=== PATIENT | male | born 1955 | race Caucasian/White ===

== ENCOUNTER → 2016-04-06 | Outpatient (CLI) | payer BC, OTHER ==
[~2016-04-06] MED LIST: APIX1TAB3 PO; ASPEC325 PO; CEPH500C2 PO; CHOL100010 PO; CHOL100027 PO; CZR50 PO; FERR1TAB23 PO; LOSA100T65 PO; MULT-513 PO; OXYC-409 PO; OXYC-57 PO; PRT/20 PO
== END | disposition home or self-care (01) ==
LOC: C.RDSM 15:37
PROVIDERS: ATTEND Physical Medicine & Rehabilitation Sports Medicine
DX: M21.611 Bunion of right foot (principal)

== ENCOUNTER 2016-07-30 15:10 | Inpatient (IN) | payer BC ==
[~2016-07-30] VITALS: Ht 193 cm; Wt 121.9 kg
[~2016-07-30 15:10] MED LIST changes: -APIX1TAB3 PO; -CEPH500C2 PO; -CHOL100010 PO; -CHOL100027 PO; -FERR1TAB23 PO; -LOSA100T65 PO; -MULT-513 PO; -OXYC-57 PO
[2016-07-30] MEDS ORDERED: ONDANSETRON INJ 2 MG/ML 2 ML VIAL IV STA (15:24)
[2016-07-30] MEDS ORDERED: MoRPHine SULFATE 10 MG/ML CARP/VIAL IV STA (15:24)
[2016-07-30] MEDS ORDERED: SODIUM CHLORIDE 0.9% 1000ML 1,000 ML IV ONE (15:30)
[2016-07-30] MEDS ORDERED: MoRPHine SULFATE 4 MG/ML 1 ML CARP\\VIAL ONE (15:32)
[2016-07-30 15:45] LABS: BASO % 0.8 %; BASO ABS # 0.05 K/uL (0-0.2); COMPLETE YES; EOS % 1.7 %; IG% 0.2 %; LYMPH % 26.1 %; LYMPH ABS # 1.66 K/uL (1.2-3.4); MEAN CELL VOLUME 97.7 fL (80-100); MEAN CORPUSCULAR HEMOGLOBIN 32.4 pg (25-34); MEAN CORPUSCULAR HGB CONC 33.2 g/dl (32-36); MEAN PLATELET VOLUME 10.8 fL (7.4-10.4); MONO % 7.1 %; NEUT % 64.1 %; PLATELET COUNT 177 K/uL (130-400); RED BLOOD COUNT 4.81 M/uL (4.7-6.1); WHITE BLOOD COUNT 6.37 K/uL (4.8-10.8)
[2016-07-30] MEDS ORDERED: MULT-513 PO ×2 (15:50→16:10)
[2016-07-30 16:06] LABS: BUN/CREATININE RATIO 20.7 (10-20); CALCIUM 9.1 mg/dl (8.5-10.1); CREATININE 0.89 mg/dl (0.60-1.40)
[2016-07-30 16:10] LABS: ALB/GLOB RATIO 1.3 (0.9-2)
[2016-07-30] MEDS ORDERED: APIX1TAB3 PO (16:10)
[2016-07-30] MEDS ORDERED: LOSA100T65 PO (16:10)
[2016-07-30] MEDS ORDERED: FERR1TAB23 PO (16:10)
[2016-07-30] MEDS ORDERED: CHOL100027 PO (16:11)
--- NOTE | 2016-07-30 16:14 | DIAGNOSTIC IMAGING REPORT ---
ABDOMINAL ULTRASOUND, RIGHT LOWER QUADRANT HISTORY: Pain Right inguinal mass and pain. COMPARISON: CT 07/26/2014 FINDINGS: 10 x 6 x 5 cm complex mass right inguinal region. This contains a combination of fluid-filled loops of bowel, as well as potential fat. This potentially represents a complex bowel containing hernia. IMPRESSION: Complex bowel containing hernia versus fat and bowel-containing hernia. Possibility of a neoplastic mass is not entirely excluded Electronically signed by: Higinio Powers M.D. 07/30/2016 4:12 PM Dictated Date/Time: 07/30/2016 4:10 PM
[2016-07-30] MEDS ORDERED: HYDROmorphone INJ 1 MG/ML SYR IV STA (16:35)
--- NOTE | 2016-07-30 17:02 | DIAGNOSTIC IMAGING REPORT ---
ABDOMEN AND PELVIS CT WITHOUT CONTRAST CT DOSE: 1350.97 mGy.cm HISTORY: Flank pain Right inguinal pain. ?Incarcerated hernia vs other. See US TECHNIQUE: Multiaxial CT images of the abdomen and pelvis were performed without contrast. COMPARISON STUDY: 2013 FINDINGS: The ultrasound findings relating to the right lower quadrant relate to a fat and small bowel containing hernia. May be a component of mild incarceration based of the fluid-filled nature of the dependent loops of small bowel. There are no bowel obstructive changes. There is a gallstone within the gallbladder lumen. Findings of a prior gastric operative changes are noted. Liver spleen and pancreas are uniform. Kidneys negative for hydronephrosis. Bowel pattern overall again is nonobstructive. Bladder is midline. There is no free fluid within the pelvic cul-de-sac. There is a small fat-containing left inguinal hernia. IMPRESSION: 1. Fat-containing right inguinal hernia containing fat and small bowel.. 2. Possibly of a component of mild incarceration is considered, although there is no evidence for obstructive change or significant bowel wall edema at the current time. 3. Gallstone Electronically signed by: Higinio Powers M.D. 07/30/2016 5:01 PM Dictated Date/Time: 07/30/2016 4:57 PM
[2016-07-30] MEDS ORDERED: CEFOXITIN SOD 2 GM VIAL IV STA (17:09)
[2016-07-30] MEDS ORDERED: CEFOXITIN 2000MG/60 ML D5W IV SCH (17:15)
[2016-07-30] MEDS ORDERED: MIDAZOLAM HCL 1 MG/ML 2ML VIAL ONE (17:34)
--- NOTE | 2016-07-30 17:34 | History and Physical ---
History & Physical Date & Time of Service: July 30, 2016 at 17:29 Chief Complaint: Lower Ab Pain, Groin Pain Primary Care Physician: Matthew Pro M.D. History of Present Illness Source: patient, family pt to ER with severe Rt groin pain starting 31/2 hrs ago- h/o of ing hernia CT shows Large Rt ing hernia with small bowel/ fluid pt takes eliquis for afib Past Medical/Surgical History Medical Problems: (1) Afib Status: Chronic (2) GI bleed Status: Resolved (3) Rotator cuff disorder Status: Resolved Family History Diabetes mellitus Hypertension Social History Smoking Status: Never Smoker Drug Use: none Marital Status: Occupational Status: employed Multi-Drug Resistant Organisms History of MDRO: No Allergies Coded Allergies: No Known Allergies (Unverified , 05/28/14) Home Medications Scheduled Apixaban (Eliquis), 5 MG PO BID Cholecalciferol (Vitamin D 1000 Unit), 1,000 INTER.UNIT PO DAILY Ferrous Sulfate (Iron), 1 TAB PO DAILY Losartan Potassium (Cozaar), 100 MG PO DAILY Multivitamins/Minerals (Mvi With Minerals), 1 TAB PO DAILY Multivitamins/Minerals (Mvi With Minerals), 1 TAB PO DAILY Review of Systems Constitutional: No chills, No fever Abdomen: + pain Physical Exam Vital Signs Date Time Temp Pulse Resp B/P Pulse Ox O2 Delivery O2 Flow Rate FiO2 07/30/16 15:22 36.8 62 20 148/98 96 Room Air General Appearance: + mild distress Eyes: normal inspection Respiratory/Chest: normal breath sounds, no respiratory distress Cardiovascular: + irregularly irregular Abdomen/GI: soft, + tenderness (Rt inguinal area- severe tenderness) Skin: warm/dry Diagnostics Laboratory Results Results Past 24 Hours Test 07/30/16 15:24 07/30/16 15:34 Range/Units White Blood Count 6.37 4.8-10.8 K/uL Red Blood Count 4.81 4.7-6.1 M/uL Hemoglobin 15.6 14.0-18.0 g/dL Hematocrit 47.0 42-52 % Mean Corpuscular Volume 97.7 80-100 fL Mean Corpuscular Hemoglobin 32.4 25-34 pg Mean Corpuscular Hemoglobin Concent 33.2 32-36 g/dl Platelet Count 177 130-400 K/uL Mean Platelet Volume 10.8 7.4-10.4 fL Neutrophils (%) (Auto) 64.1 % Lymphocytes (%) (Auto) 26.1 % Monocytes (%) (Auto) 7.1 % Eosinophils (%) (Auto) 1.7 % Basophils (%) (Auto) 0.8 % Neutrophils # (Auto) 4.09 1.4-6.5 K/uL Lymphocytes # (Auto) 1.66 1.2-3.4 K/uL Monocytes # (Auto) 0.45 0.11-0.59 K/uL Eosinophils # (Auto) 0.11 0-0.5 K/uL Basophils # (Auto) 0.05 0-0.2 K/uL RDW Standard Deviation 46.2 36.4-46.3 fL RDW Coefficient of Variation 12.9 11.5-14.5 % Immature Granulocyte % (Auto) 0.2 % Immature Granulocyte # (Auto) 0.01 0.00-0.02 K/uL Sodium Level 142 136-145 mmol/L Potassium Level 4.0 3.5-5.1 mmol/L Chloride Level 108 98-107 mmol/L Carbon Dioxide Level 25 21-32 mmol/L Anion Gap 9.0 3-11 mmol/L Blood Urea Nitrogen 18 7-18 mg/dl Creatinine 0.89 0.60-1.40 mg/dl Est Creatinine Clear Calc Drug Dose 123.4 ml/min Estimated GFR () 107.0 Estimated GFR (Non- 92.3 BUN/Creatinine Ratio 20.7 10-20 Random Glucose 116 70-99 mg/dl Calcium Level 9.1 8.5-10.1 mg/dl Total Bilirubin 0.5 0.2-1 mg/dl Aspartate Amino Transf (AST/SGOT) 29 15-37 U/L Alanine Aminotransferase (ALT/SGPT) 43 12-78 U/L Alkaline Phosphatase 43 45-117 U/L Total Protein 6.6 6.4-8.2 gm/dl Albumin 3.7 3.4-5.0 gm/dl Globulin 2.9 2.5-4.0 gm/dl Albumin/Globulin Ratio 1.3 0.9-2 Impression Assessment and Plan pt with incarcerated , possible strangulated Rt ing hernia on Eliquis- no reversal- this is an emergency with high risk of bowel infarction- family , pt understand risks of bleeding discussed with coag clinic, will T&S to OR for Rt ing hernia repair, possible bowel resection
[2016-07-30] MEDS ORDERED: FENTANYL CITRATE INJ 50 MCG/1 ML 2 ML VIAL ONE ×2 (17:35→18:20)
[2016-07-30] MEDS ORDERED: LIDOCAINE HCL 1% 20 ML VIAL ONE (17:35)
[2016-07-30] MEDS ORDERED: BUPIVACAINE 0.5 % 5 MG/1 ML MPF 30ML VIAL ONE (17:35)
[2016-07-30] MEDS ORDERED: CEFAZOLIN SOD 1 GM VIAL ONE (17:37)
[2016-07-30] MEDS ORDERED: CHOL100010 PO (18:16)
--- NOTE | 2016-07-30 18:45 | EMERGENCY ROOM VISIT NOTE ---
History First contact with patient: 15:15 Chief Complaint: GROIN PAIN Stated Complaint: LOWER AB PAIN, GROIN PAIN History of Present Illness The patient is a 61 year old male who presents to the Emergency Room with complaints of severe pain in his groin that began about 2 PM this afternoon (1 hour and 15 minutes prior to arrival). The patient does not recall distinct injury or trauma. He was not doing anything at the time of his initial onset of pain. He states the pain radiates slightly into his right lower quadrant abdomen. The patient is with a history of multiple hernias that have required repair as well as appendectomy. He has not had fever or chills. No vomiting but he is nauseated. He does Elloquis for atrial fibrillation, but is otherwise fairly healthy. The patient does not have flank pain or dysuria. No difficulty using the bathroom. His last meal was around 12 noon. He rates his discomfort a 10/10 and has not taken anything [id number] for his discomfort. Review of Systems More than 10 systems were reviewed and otherwise negative with the exception of history of present illness. Past Medical/Surgical History Medical Problems: (1) Afib (2) GI bleed (3) Rotator cuff disorder Family History Diabetes mellitus Hypertension Social History Smoking Status: Never Smoker Alcohol Use: none Drug Use: none Marital Status: Housing Status: lives with significant other Occupation Status: employed Current/Historical Medications Scheduled Apixaban (Eliquis), 5 MG PO BID Cholecalciferol (Vitamin D 1000 Unit), 1,000 INTER.UNIT PO DAILY Ferrous Sulfate (Iron), 1 TAB PO DAILY Losartan Potassium (Cozaar), 100 MG PO DAILY Multivitamins/Minerals (Mvi With Minerals), 1 TAB PO DAILY Multivitamins/Minerals (Mvi With Minerals), 1 TAB PO DAILY Allergies Coded Allergies: No Known Allergies (Unverified , 05/28/14) Physical Exam Vital Signs Date Time Temp Pulse Resp B/P Pulse Ox O2 Delivery O2 Flow Rate FiO2 07/30/16 17:20 76 20 156/102 96 Room Air 07/30/16 15:22 36.8 62 20 148/98 96 Room Air Physical Exam VITALS: Vitals are noted on the nurse's note and reviewed by myself. Vital signs stable. GENERAL: Well-developed, well-nourished, white male who is moderately uncomfortable on examination. HEAD: Normocephalic atraumatic. HEART: Regular rate and rhythm without murmurs gallops or rubs. LUNGS: Clear to auscultation bilaterally without wheezes, rales or rhonchi. No retractions or accessory muscle use. ABDOMEN: Positive normal bowel sounds x 4. Soft, nontender, without masses or organomegaly. There is a palpable mass in the right inguinal canal region that is exquisitely tender on palpation. The patient does guard in this area. There is no obvious erythema. MUSCULOSKELETAL: No muscle atrophy, erythema, or edema noted. Full range of motion without joint tenderness in all extremities. Medical Decision & Procedures ER Provider Diagnostic Interpretation: ABDOMEN AND PELVIS CT WITHOUT CONTRAST CT DOSE: 1350.97 mGy.cm HISTORY: Flank pain Right inguinal pain. ?Incarcerated hernia vs other. See US TECHNIQUE: Multiaxial CT images of the abdomen and pelvis were performed without contrast. COMPARISON STUDY: 2013 FINDINGS: The ultrasound findings relating to the right lower quadrant relate to a fat and small bowel containing hernia. May be a component of mild incarceration based of the fluid-filled nature of the dependent loops of small bowel. There are no bowel obstructive changes. There is a gallstone within the gallbladder lumen. Findings of a prior gastric operative changes are noted. Liver spleen and pancreas are uniform. Kidneys negative for hydronephrosis. Bowel pattern overall again is nonobstructive. Bladder is midline. There is no free fluid within the pelvic cul-de-sac. There is a small fat-containing left inguinal hernia. IMPRESSION: 1. Fat-containing right inguinal hernia containing fat and small bowel.. 2. Possibly of a component of mild incarceration is considered, although there is no evidence for obstructive change or significant bowel wall edema at the current time. 3. Gallstone ABDOMINAL ULTRASOUND, RIGHT LOWER QUADRANT HISTORY: Pain Right inguinal mass and pain. COMPARISON: CT 07/26/2014 FINDINGS: 10 x 6 x 5 cm complex mass right inguinal region. This contains a combination of fluid-filled loops of bowel, as well as potential fat. This potentially represents a complex bowel containing hernia. IMPRESSION: Complex bowel containing hernia versus fat and bowel-containing hernia. Possibility of a neoplastic mass is not entirely excluded Laboratory Results 07/30/16 15:34 Red Blood Count 4.81, Mean Corpuscular Volume 97.7, Mean Corpuscular Hemoglobin 32.4, Mean Corpuscular Hemoglobin Concent 33.2, Mean Platelet Volume 10.8, Neutrophils (%) (Auto) 64.1, Lymphocytes (%) (Auto) 26.1, Monocytes (%) (Auto) 7.1, Eosinophils (%) (Auto) 1.7, Basophils (%) (Auto) 0.8, Neutrophils # (Auto) 4.09, Lymphocytes # (Auto) 1.66, Monocytes # (Auto) 0.45, Eosinophils # (Auto) 0.11, Basophils # (Auto) 0.05 07/30/16 15:34 Test 07/30/16 15:24 07/30/16 15:34 White Blood Count 6.37 K/uL (4.8-10.8) Red Blood Count 4.81 M/uL (4.7-6.1) Hemoglobin 15.6 g/dL (14.0-18.0) Hematocrit 47.0 % (42-52) Mean Corpuscular Volume 97.7 fL (80-100) Mean Corpuscular Hemoglobin 32.4 pg (25-34) Mean Corpuscular Hemoglobin Concent 33.2 g/dl (32-36) Platelet Count 177 K/uL (130-400) Mean Platelet Volume 10.8 fL (7.4-10.4) Neutrophils (%) (Auto) 64.1 % Lymphocytes (%) (Auto) 26.1 % Monocytes (%) (Auto) 7.1 % Eosinophils (%) (Auto) 1.7 % Basophils (%) (Auto) 0.8 % Neutrophils # (Auto) 4.09 K/uL (1.4-6.5) Lymphocytes # (Auto) 1.66 K/uL (1.2-3.4) Monocytes # (Auto) 0.45 K/uL (0.11-0.59) Eosinophils # (Auto) 0.11 K/uL (0-0.5) Basophils # (Auto) 0.05 K/uL (0-0.2) RDW Standard Deviation 46.2 fL (36.4-46.3) RDW Coefficient of Variation 12.9 % (11.5-14.5) Immature Granulocyte % (Auto) 0.2 % Immature Granulocyte # (Auto) 0.01 K/uL (0.00-0.02) Anion Gap 9.0 mmol/L (3-11) Est Creatinine Clear Calc Drug Dose 123.4 ml/min Estimated GFR () 107.0 Estimated GFR (Non- 92.3 BUN/Creatinine Ratio 20.7 (10-20) Calcium Level 9.1 mg/dl (8.5-10.1) Total Bilirubin 0.5 mg/dl (0.2-1) Aspartate Amino Transf (AST/SGOT) 29 U/L (15-37) Alanine Aminotransferase (ALT/SGPT) 43 U/L (12-78) Alkaline Phosphatase 43 U/L (45-117) Total Protein 6.6 gm/dl (6.4-8.2) Albumin 3.7 gm/dl (3.4-5.0) Globulin 2.9 gm/dl (2.5-4.0) Albumin/Globulin Ratio 1.3 (0.9-2) Medications Administered Medications (Trade) Dose Ordered Sig/Michael Route Start Time Stop Time Status Last Admin Dose Admin Sodium Chloride (Nss 1000ml) 1,000 ml @ 999 mls/hr Q1H1M ONCE IV 07/30/16 15:30 07/30/16 16:30 DC 07/30/16 15:36 999 MLS/HR Ondansetron HCl (Zofran Inj) 4 mg NOW STAT IV 07/30/16 15:24 07/30/16 15:25 DC 07/30/16 15:36 4 MG Morphine Sulfate (MoRPHine SULFATE INJ) 8 mg STK-MED ONCE .ROUTE 07/30/16 15:32 07/30/16 15:33 DC 07/30/16 15:36 8 MG Hydromorphone HCl (Dilaudid Inj) 1 mg NOW STAT IV 07/30/16 16:35 07/30/16 16:36 DC 07/30/16 17:27 1 MG Cefoxitin Sodium (Mefoxin 2000mg/ 60 ml D5W) 2,000 mg NOW IV 07/30/16 17:15 07/30/16 19:00 07/30/16 17:27 2,000 MG ED Course Physical exam and history were performed. Nursing notes and EMR were reviewed. Patient appears to have right groin pain for the past few hours. The patient is exquisitely tender in the right inguinal canal region with palpable mass. This area is not reducible and concerning for hernia. IV access was established and labs were obtained. The patient was hydrated and medicated as above. Ultrasound was performed. The patient blood work is as above and was reviewed. He does not have a significantly elevated white blood cell count, gross anemia, bandemia, or significant electrolyte imbalance. His ultrasound does show a bowel containing hernia, which clinically correlates with his symptoms. The patient continued to be exquisitely tender, and out of concern for incarceration a CT scan was performed. The patient CT scan does show what appears to be early incarceration of a bowel containing hernia. Case was discussed with my attending physician, Dr. Fisher, and then with the on-call surgeon Dr. Beaver. Dr. Beaver recommended starting Mefoxin 2 g, which was performed. Dr. Beaver did evaluate the patient here in the ER regarding his symptoms. Please see Dr. Beaver's dictation for further patient course, plan, and disposition. The chart was completed utilizing [employer] Speech Voice Recognition Software. Grammatical errors, random word insertions, pronoun errors, and incomplete sentences are an occasional consequence of this system due to software limitations, ambient noise, and hardware issues. Any formal questions or concerns about the content, text, or information contained within the body of this dictation should be directly addressed to the provider for clarification. . Medical Decision Differential diagnosis: Etiologies such as incarcerated hernia, appendicitis, diverticulitis, PUD, biliary pathology, UTI, pancreatitis, obstruction, mesenteric ischemia, aortic pathology, infections, inflammatory bowel disease, renal colic, as well as others were entertained. Impression Primary Impression: Incarcerated hernia Departure Information Referrals Matthew Pro M.D. (PCP) Patient Instructions [facility]
[2016-07-30] MEDS ORDERED: SUCCINYLCHOLINE CHLORIDE 20 MG/ML 10 ML VIAL IV ONE (18:58)
[2016-07-30] MEDS ORDERED: DEXAMETHASONE SOD INJ 4 MG/ML VIAL ONE (18:58)
[2016-07-30] MEDS ORDERED: LIDOCAINE HCL 2% 2 ML VIAL (20MG/ML) ONE (18:58)
[2016-07-30] MEDS ORDERED: ONDANSETRON INJ 2 MG/ML 2 ML VIAL ONE (18:58)
[2016-07-30] MEDS ORDERED: PROPOFOL IV EMULSION 10 MG/ML 20 ML VIAL IV ONE (18:58)
[2016-07-30] MEDS ORDERED: CISATRACURIUM BESYLATE IV SOLN 2 MG/ML 10 ML VIAL ONE (18:58)
[2016-07-30] MEDS ORDERED: GLYCOPYRROLATE INJ 0.2 MG/ML VIAL ONE (19:09)
[2016-07-30] MEDS ORDERED: NEOSTIGMINE METHYLSULFATE 5 MG/5 ML SYR ONE (19:09)
--- NOTE | 2016-07-30 19:44 | [facility] Post Operative Brief Note ---
Immediate Operative Summary Operative Date July 30, 2016. Pre-Operative Diagnosis Right Incarcerated Inguinal Hernia Post-Operative Diagnosis Right Incarcerated Inguinal Hernia Procedure(s) Performed Right Incarcerated Inguinal Hernia Repair- emergency Surgeon Dr. Beaver Scrap Kettle Tender Surgeon(s) nurses Estimated Blood Loss 20ml Findings incarcerated , edematous small bowel, large lipoma, no infarction or severe ischemia Specimens A. Right inguinal hernia sac and lipoma Drains # [address] ANGELA to wound Anesthesia gen Complication(s) None Disposition Recovery Room / PACU
[2016-07-30] MEDS ORDERED: ONDANSETRON INJ 2 MG/ML 2 ML VIAL IV PRN ×2 (19:45→20:00)
[2016-07-30] MEDS ORDERED: PROMETHAZINE HCL INJ 25 MG in SODIUM CHLORIDE 0.9% 50ML 50 ML IV PRN (19:45)
[2016-07-30] MEDS ORDERED: HYDROmorphone INJ 2 MG/ML SYR/VIAL IV PRN (19:45)
[2016-07-30] MEDS ORDERED: HYDROmorphone INJ 0.5 MG/0.5 ML SYR IV PRN (19:45)
[2016-07-30] MEDS ORDERED: HYDROmorphone INJ 1 MG/ML SYR IV PRN ×2 (19:45→20:00)
[2016-07-30] MEDS ORDERED: OXYCODONE/ACETAMINOPHEN 5-325 TAB PO PRN ×2 (19:45)
[2016-07-30] MEDS ORDERED: EpHEDrine SULFATE INJ 50 MG/ML AMP IV PRN (20:00)
[2016-07-30] MEDS ORDERED: FLUMAZENIL 0.1 MG/1 ML 10 ML VIAL IV PRN (20:00)
[2016-07-30] MEDS ORDERED: ATROPINE SULFATE 0.1 MG/ML 5ML SYR IV PRN (20:00)
[2016-07-30] MEDS ORDERED: PROMETHAZINE HCL INJ 12.5 MG in SODIUM CHLORIDE 0.9% 50ML 50 ML IV PRN ×2 (20:00)
[2016-07-30] MEDS ORDERED: NALOXONE HCL 0.4 MG/1 ML VIAL/CARP IV PRN (20:00)
[2016-07-30] MEDS ORDERED: LABETALOL HCL IV 5 MG/ML 20ML IV PRN (20:00)
--- NOTE | 2016-07-30 20:27 | Anesthesiology Progress Note ---
Anesthesia Post Op Note Date & Time July 30, 2016 at 20:27 Vital Signs Pain Intensity: 0 Vital Signs Past 12 Hours Date Time Temp Pulse Resp B/P Pulse Ox O2 Delivery O2 Flow Rate FiO2 07/30/16 20:20 60 16 129/94 100 Nasal Cannula 2 07/30/16 20:10 68 16 147/87 100 Mask 10 07/30/16 20:00 80 16 128/96 99 Mask 10 07/30/16 19:51 36.4 89 16 137/83 99 Mask 10 07/30/16 17:20 76 20 156/102 96 Room Air 07/30/16 15:22 36.8 62 20 148/98 96 Room Air Notes Mental Status: alert / awake / arousable, participated in evaluation Pt Amnestic to Procedure: Yes Nausea / Vomiting: adequately controlled Pain: adequately controlled Airway Patency, RR, SpO2: stable & adequate BP & HR: stable & adequate Hydration State: stable & adequate Anesthetic Complications: no major complications apparent
[2016-07-30] MEDS ORDERED: METOPROLOL TARTRATE 1 MG/ML VIAL IV PRN (20:30)
[2016-07-30] MEDS ORDERED: HydrALAZINE HCL 20 MG/ML VIAL IV. PRN (20:30)
[2016-07-30 20:50] VITALS: BP 151/87; PULSE 80; PULSE 87; TEMP 36.8; O2SAT 95; Ht 193 cm; Wt 121.9 kg
[2016-07-30] MEDS: LACTATED RINGER'S 1000ML 1,000 ML IV SCH (20:58)
[2016-07-30] MEDS: DOCUSATE SODIUM/SENNA 50/8.6MG TAB PO SCH (21:00)
--- NOTE | 2016-07-30 21:27 | OPERATIVE REPORT ---
DATE OF OPERATION: 07/30/2016 NAME OF OPERATION: Emergency repair of incarcerated right inguinal hernia. PREOPERATIVE DIAGNOSIS: Incarcerated right inguinal hernia. POSTOPERATIVE DIAGNOSIS: Same with small-bowel incarcerated. STAFF SURGEON: Dr. Beaver. ANESTHESIA: General. PROCEDURE: The patient was brought in the operating room and placed on the operating table in supine position. His abdomen was prepped and draped in usual fashion after Bradley catheter, orogastric tube, and pneumatic stockings were placed. Incision was made using 0.5% plain Marcaine to anesthetize skin and subcutaneous tissue and then the deep tissue, carrying dissection down through significant adipose tissue, identifying the external oblique fibers to the external ring. The ring was very tight. There was an incarcerated hernia which traversed into the scrotum. The external oblique fibers were incised along their length mobilizing the cord structures and hernia sac. The sac was then opened, identifying a loop of small-bowel which was not infarcted or severely ischemic. However, there was significant fluid and edema in the small-bowel. It was reduced and then the sac dissected away from the cord structures and then closed using 0 silk suture. The patient had a very large lipoma which was also excised and ligated using 2-0 silk suture. At this point, I was somewhat concerned about placing mesh in a situation like this secondary to the risk of infection. Therefore, the hernia defect was closed using interrupted sutures of 0 silk, reapproximating the inguinal ligament with the transversalis fascia and external oblique fibers, several layers were placed. The site was irrigated with antibiotic solution. A 19 round Chapin-Michael drain placed into the wound, secured to the skin using 3-0 nylon suture. Subcutaneous tissue reapproximated using 2-0 plain catgut suture, then the skin reapproximated using 4-0 nylon suture and Steri-Strips. The patient was transferred to recovery room in stable condition. I attest to the content of the Intraoperative Record and any orders documented therein. Any exceptio ns are noted below.
[2016-07-30 21:30] VITALS: BP 141/106; PULSE 83; TEMP 36.8; O2SAT 97
[2016-07-30 22:15] VITALS: BP 124/87; PULSE 90; TEMP 36.9; O2SAT 84
[2016-07-30 23:00] VITALS: BP 105/73; PULSE 85; TEMP 37.1; O2SAT 97
--- NOTE | 2016-07-30 23:43 | Medical Consult ---
Consultation Date of Consultation: July 30, 2016. Attending Physician: Jhonathan Beaver M.D. Reason for Consultation: Postoperative medical management. History of Present Illness The patient is a 61-year-old male who presented to the emergency department complaint of severe right groin pain began about 2:00 in the afternoon. He has no precipitating factors that he is aware of. His surgical history that includes multiple hernia repairs and an appendectomy. He had nausea but no vomiting. He is on Eliquis for anticoagulation for atrial fibrillation. Past Medical/Surgical History Medical Problems: (1) Incarcerated hernia Status: Acute Family History Diabetes mellitus Hypertension Social History Smoking Status: Former Smoker Drug Use: none Marital Status: Housing Status: lives with significant other Occupation Status: employed Allergies Coded Allergies: No Known Allergies (Unverified , 05/28/14) Current Inpatient Medications Current Inpatient Medications Medications (Trade) Dose Ordered Sig/Michael Route Start Time Stop Time Status Last Admin Dose Admin Losartan Potassium 100 mg 100 mg DAILY PO 07/31/16 09:00 08/30/16 08:59 Lactated Ringer's 1,000 ml @ 75 mls/hr [id number] IV 07/30/16 19:44 08/29/16 19:43 07/30/16 20:58 75 MLS/HR Cefazolin Sodium/ Dextrose (Ancef Iv/D5 50ml) 60 ml @ 100 mls/hr Q8@0400,1200,2000 IV 07/31/16 04:00 08/10/16 03:59 Hydromorphone HCl (Dilaudid Inj) 0.5 mg Q3H PRN IV 07/30/16 19:45 08/13/16 19:44 Hydromorphone HCl (Dilaudid Inj) 1 mg Q3H PRN IV 07/30/16 19:45 08/13/16 19:44 Hydromorphone HCl (Dilaudid Inj) 2 mg Q3H PRN IV 07/30/16 19:45 08/13/16 19:44 Magnesium Hydroxide (Milk Of Magnesia Susp) 30 ml BID PO 07/31/16 09:00 08/30/16 08:59 Oxycodone/ Acetaminophen (Percocet 5-325mg Tab) 1 tab Q4H PRN PO 07/30/16 19:45 08/13/16 19:44 Oxycodone/ Acetaminophen 2 tab 2 tab Q4H PRN PO 07/30/16 19:45 08/13/16 19:44 Promethazine HCl/ Sodium Chloride (Phenergan Inj/ Nss 50ml) 51 ml @ 204 mls/hr Q6H PRN IV 07/30/16 19:45 08/29/16 19:44 Ondansetron HCl (Zofran Inj) 4 mg Q6H PRN IV 07/30/16 19:45 08/29/16 19:44 Senna/Docusate Sodium 1 tab 1 tab BID PO 07/30/16 22:00 08/29/16 21:59 Promethazine HCl/ Sodium Chloride (Phenergan Inj/ Nss 50ml) 50.5 ml @ 204 mls/hr Q6H PRN IV 07/30/16 20:00 08/29/16 19:59 Hydromorphone HCl (Dilaudid Inj) 0.25 mg Q5M PRN IV 07/30/16 20:00 07/31/16 01:00 Naloxone HCl (Narcan Inj) 0.2 mg Q2M PRN IV 07/30/16 20:00 07/31/16 01:00 Flumazenil (Romazicon Inj) 0.2 mg Q2M PRN IV 07/30/16 20:00 07/31/16 01:00 Ondansetron HCl 4 mg 4 mg ONE PRN IV 07/30/16 20:00 07/31/16 01:00 Promethazine HCl/ Sodium Chloride (Phenergan Inj/ Nss 50ml) 50.5 ml @ 202 mls/hr ONE PRN IV 07/30/16 20:00 07/31/16 01:00 Labetalol HCl (Normodyne IV) 5 mg Q5M PRN IV 07/30/16 20:00 07/31/16 01:00 Ephedrine Sulfate (EpHEDrine SULFATE INJ) 5 mg Q5M PRN IV 07/30/16 20:00 07/31/16 01:00 Atropine Sulfate (Atropine Sulfate 0.1MG/Ml Inj) 0.5 mg Q1M PRN IV 07/30/16 20:00 07/31/16 01:00 Hydralazine HCl (HydrALAZINE INJ) 10 mg Q4H PRN IV. 07/30/16 20:30 6/3/17 20:29 Metoprolol Tartrate (Lopressor Iv) 5 mg Q4 PRN IV 07/30/16 20:30 08/29/16 20:29 Review of Systems Constitutional: No chills, No fatigue, No fever, No problem reported, No sweats , No weakness, No weight loss Eyes: No diplopia, No discharge, No eye pain, No problem reported, No redness, No worsening of vision ENT: No dental problems, No hearing loss, No nasal symptoms, No problem reported, No sore throat, No tinnitus, No trouble swallowing, No unusual epistaxis Respiratory: No cough, No dyspnea at rest, No dyspnea on exertion, No hemoptysis, No problem reported, No shortness of breath, No sputum, No wheezing Cardiovascular: No PND, No chest pain, No claudication, No edema, No orthopnea , No palpitations, No problem reported Abdomen: + nausea, + pain, No GI bleeding, No constipation, No diarrhea, No vomiting Musculoskeletal: No calf pain, No joint pain, No muscle pain, No problem reported, No swelling Genitourinary - Male: No dysuria, No hematuria, No impotence, No lesions, No penile discharge, No problem reported, No urinary frequency, No urinary hesitancy, No urinary incontinence, No urinary retention, No urinary urgency Neurologic: No balance problems, No memory loss, No numbness/tingling, No paralysis, No problem reported, No vertigo, No weakness Psychiatric: No anhedonism, No anxiety, No depression symptoms, No insomnia, No problem reported, No substance abuse Endocrine: No excessive thirst, No excessive urination, No fatigue, No problem reported Hematologic / Lymphatic: No abnormal bleeding/bruising, No clotting problems, No night sweats, No problem reported, No swollen lymph nodes Integumentary: No bleeding, No color change, No itch, No new/changing skin lesions, No problem reported, No rash Allergic / Immunologic: No environmental allergies, No food allergies, No frequent infections, No hives, No pet sensitivities, No poor healing, No problem reported, No prolonged convalescence, No seasonal allergies Physical Exam Date Time Temp Pulse Resp B/P Pulse Ox O2 Delivery O2 Flow Rate FiO2 07/30/16 22:15 36.9 90 18 124/87 84 Nasal Cannula 3.0 07/30/16 21:30 36.8 83 20 141/106 97 Nasal Cannula 3.0 07/30/16 20:50 36.8 87 20 151/87 95 Nasal Cannula 4.0 07/30/16 20:50 80 95 Nasal Cannula 4.0 07/30/16 20:40 37 82 16 135/99 99 Nasal Cannula 2 07/30/16 20:30 37 74 16 153/99 100 Nasal Cannula 2 07/30/16 20:20 60 16 129/94 100 Nasal Cannula 2 07/30/16 20:10 68 16 147/87 100 Mask 10 07/30/16 20:00 80 16 128/96 99 Mask 10 07/30/16 19:51 36.4 89 16 137/83 99 Mask 10 07/30/16 17:20 76 20 156/102 96 Room Air 07/30/16 15:22 36.8 62 20 148/98 96 Room Air General Appearance: WD/WN, + mild distress, + pertinent finding (he is seen postoperatively in the PACU, has the expected postoperative discomfort, but feels much better before surgery.) Head: normocephalic, atraumatic Eyes: normal inspection, PERRL, EOMI, sclerae normal ENT: normal ENT inspection, hearing grossly normal, pharynx normal Neck: supple, no adenopathy, thyroid normal, no JVD, no carotid bruits, trachea midline Respiratory/Chest: chest non-tender, lungs clear, normal breath sounds, no respiratory distress, no accessory muscle use Cardiovascular: no edema, no gallop, no JVD, no murmur, normal peripheral pulses, + irregularly irregular Abdomen/GI: normal bowel sounds, soft, + pertinent finding (as the expected postoperative incisional pain.) Back: normal inspection, no CVA tenderness, no muscle spasm Extremities/Musculoskelatal: normal inspection, no calf tenderness, normal capillary refill, no pedal edema, normal range of motion, non-tender Neurologic/Psych: spout positioner II-XII nml as tested, no motor/sensory deficits, alert, normal mood/affect, normal reflexes, oriented x 3 Skin: normal color, warm/dry, no rash Lymphatic: no adenopathy Laboratory Results Last 24 Hours Test 07/30/16 15:34 White Blood Count 6.37 K/uL Red Blood Count 4.81 M/uL Hemoglobin 15.6 g/dL Hematocrit 47.0 % Mean Corpuscular Volume 97.7 fL Mean Corpuscular Hemoglobin 32.4 pg Mean Corpuscular Hemoglobin Concent 33.2 g/dl Platelet Count 177 K/uL Mean Platelet Volume 10.8 fL Neutrophils (%) (Auto) 64.1 % Lymphocytes (%) (Auto) 26.1 % Monocytes (%) (Auto) 7.1 % Eosinophils (%) (Auto) 1.7 % Basophils (%) (Auto) 0.8 % Neutrophils # (Auto) 4.09 K/uL Lymphocytes # (Auto) 1.66 K/uL Monocytes # (Auto) 0.45 K/uL Eosinophils # (Auto) 0.11 K/uL Basophils # (Auto) 0.05 K/uL RDW Standard Deviation 46.2 fL RDW Coefficient of Variation 12.9 % Immature Granulocyte % (Auto) 0.2 % Immature Granulocyte # (Auto) 0.01 K/uL Sodium Level 142 mmol/L Potassium Level 4.0 mmol/L Chloride Level 108 mmol/L Carbon Dioxide Level 25 mmol/L Anion Gap 9.0 mmol/L Blood Urea Nitrogen 18 mg/dl Creatinine 0.89 mg/dl Est Creatinine Clear Calc Drug Dose 123.4 ml/min Estimated GFR () 107.0 Estimated GFR (Non- 92.3 BUN/Creatinine Ratio 20.7 Random Glucose 116 mg/dl Calcium Level 9.1 mg/dl Total Bilirubin 0.5 mg/dl Aspartate Amino Transf (AST/SGOT) 29 U/L Alanine Aminotransferase (ALT/SGPT) 43 U/L Alkaline Phosphatase 43 U/L Total Protein 6.6 gm/dl Albumin 3.7 gm/dl Globulin 2.9 gm/dl Albumin/Globulin Ratio 1.3 Assessment & Plan Status post incarcerated right inguinal hernia repair--patient is seen postoperatively and is medically stable. Atrial fibrillation/hypertension--we'll place him on hydralazine IV or Lopressor IV to use when necessary. Continue IV fluids. Pain control. Place hold parameters on losartan starting in the a.m. Eliquis can be resumed when surgically acceptable. Follow PRP and magnesium in the a.m.
[2016-07-31] VITALS (8 sets, daily range): BP systolic 116–143; BP diastolic 70–89; PULSE 65–91; TEMP 36.6–37.1; O2SAT 93–96
[2016-07-31] MEDS: CEFAZOLIN IV 2,000 MG in DEXTROSE 5% 50ML 50 ML IV SCH ×3 (05:02→20:54)
[2016-07-31 05:29] LABS: HEMATOCRIT 45.1 % (42-52); MEAN CELL VOLUME 97.8 fL (80-100); MEAN CORPUSCULAR HGB CONC 33.7 g/dl (32-36); PLATELET COUNT 161 K/uL (130-400); RED BLOOD COUNT 4.61 M/uL (4.7-6.1); WHITE BLOOD COUNT 5.65 K/uL (4.8-10.8)
[2016-07-31] MEDS ORDERED: CEPH500C2 PO (05:32)
[2016-07-31] MEDS ORDERED: OXYC-57 PO (05:32)
--- NOTE | 2016-07-31 05:36 | Discharge Instructions ---
Discharge Instructions Date of Service July 31, 2016. Admission Reason for Admission: Inguinal Hernia Of Left Side W Obstruction Discharge Discharge Diagnosis / Problem: incarcerated inguinal hernia Discharge Goals Goal(s): Decrease discomfort, Improve function, Improve disease control Activity Recommendations Activity Limitations: as noted below Lifting Limitations: no more than 10 pounds Exercise/Sports Limitations: until after follow-up appointment May Resume Sexual Activity: when tolerated Shower/Bathe: tomorrow (shower only, do not soak in bath until drain/ sutures removed) Driving or Machine Use: one week SPECIAL CARE INSTRUCTIONS: * Cover incisions and change daily for comfort/drainage. * Empty drain 2-3 times per day and record. * May use ibuprofen for pain as tolerated. * Expect some swelling and bruising. Call your doctor if: * Temperature above 101 degrees * Pain not relieved by pain medicine ordered * There is increased drainage or redness from any incision * You have any unanswered questions or concerns [phone]. FOLLOW UP VISIT: If not already scheduled, please call the office for a follow-up visit. for next week- Wed or Wed - drain check OFFICE PHONE NUMBER: Dr. Beaver Office . Current Hospital Diet Patient's current hospital diet: Regular Diet Discharge Diet Recommended Diet: Regular Diet Procedures Procedures Performed: Right Incarcerated Inguinal Hernia Repair- emergency Pending Studies Studies pending at discharge: no Medical Emergencies . Who to Call and When: Medical Emergencies: If at any time you feel your situation is an emergency, please call 911 immediately. . Non-Emergent Contact Non-Emergency issues call your: Primary Care Provider, Surgeon . "Provider Documentation" section prepared by Jhonathan Beaver. . VTE Core Measure Inpt VTE Proph given/why not?: Unfractionated heparin SQ, SCD's
[2016-07-31 05:55] LABS: BUN/CREATININE RATIO 17.8 (10-20); CALCIUM 8.7 mg/dl (8.5-10.1); CREATININE 0.79 mg/dl (0.60-1.40); PHOSPHORUS 2.7 mg/dl (2.5-4.9); POTASSIUM 4.3 mmol/L (3.5-5.1)
--- NOTE | 2016-07-31 06:42 | Surgery Progress Note ---
Surgery Progress Note Date of Service July 31, 2016. Subjective No nausea, No vomiting awake , alert no evidence of active bleeding Objective Vital Signs: Date Time Temp Pulse Resp B/P Pulse Ox O2 Delivery O2 Flow Rate FiO2 07/31/16 04:04 37.1 75 18 130/83 96 Nasal Cannula 2.0 07/31/16 04:00 96 Nasal Cannula 2.0 07/31/16 00:00 93 Room Air 07/31/16 00:00 65 17 116/70 93 Room Air 07/30/16 23:00 37.1 85 18 105/73 97 Nasal Cannula 2.0 07/30/16 22:15 36.9 90 18 124/87 84 Nasal Cannula 3.0 07/30/16 21:30 36.8 83 20 141/106 97 Nasal Cannula 3.0 07/30/16 20:50 36.8 87 20 151/87 95 Nasal Cannula 4.0 07/30/16 20:50 80 95 Nasal Cannula 4.0 07/30/16 20:40 37 82 16 135/99 99 Nasal Cannula 2 07/30/16 20:30 37 74 16 153/99 100 Nasal Cannula 2 07/30/16 20:20 60 16 129/94 100 Nasal Cannula 2 07/30/16 20:10 68 16 147/87 100 Mask 10 07/30/16 20:00 80 16 128/96 99 Mask 10 07/30/16 19:51 36.4 89 16 137/83 99 Mask 10 07/30/16 17:20 76 20 156/102 96 Room Air 07/30/16 15:22 36.8 62 20 148/98 96 Room Air General Appearance: no apparent distress Respiratory/Chest: no respiratory distress Abdomen: soft Incision(s): intact (no significant hematoma) Laboratory Results: Results Past 24 Hours Test 07/30/16 15:34 07/31/16 05:01 07/31/16 05:51 Range/Units White Blood Count 6.37 5.65 4.8-10.8 K/uL Red Blood Count 4.81 4.61 4.7-6.1 M/uL Hemoglobin 15.6 15.2 14.0-18.0 g/dL Hematocrit 47.0 45.1 42-52 % Mean Corpuscular Volume 97.7 97.8 80-100 fL Mean Corpuscular Hemoglobin 32.4 33.0 25-34 pg Mean Corpuscular Hemoglobin Concent 33.2 33.7 32-36 g/dl Platelet Count 177 161 130-400 K/uL Mean Platelet Volume 10.8 11.0 7.4-10.4 fL Neutrophils (%) (Auto) 64.1 % Lymphocytes (%) (Auto) 26.1 % Monocytes (%) (Auto) 7.1 % Eosinophils (%) (Auto) 1.7 % Basophils (%) (Auto) 0.8 % Neutrophils # (Auto) 4.09 1.4-6.5 K/uL Lymphocytes # (Auto) 1.66 1.2-3.4 K/uL Monocytes # (Auto) 0.45 0.11-0.59 K/uL Eosinophils # (Auto) 0.11 0-0.5 K/uL Basophils # (Auto) 0.05 0-0.2 K/uL RDW Standard Deviation 46.2 46.7 36.4-46.3 fL RDW Coefficient of Variation 12.9 13.0 11.5-14.5 % Immature Granulocyte % (Auto) 0.2 % Immature Granulocyte # (Auto) 0.01 0.00-0.02 K/uL Sodium Level 142 141 136-145 mmol/L Potassium Level 4.0 4.3 3.5-5.1 mmol/L Chloride Level 108 108 98-107 mmol/L Carbon Dioxide Level 25 27 21-32 mmol/L Anion Gap 9.0 6.0 3-11 mmol/L Blood Urea Nitrogen 18 14 7-18 mg/dl Creatinine 0.89 0.79 0.60-1.40 mg/dl Est Creatinine Clear Calc Drug Dose 123.4 139.0 ml/min Estimated GFR () 107.0 112.3 Estimated GFR (Non- 92.3 96.9 BUN/Creatinine Ratio 20.7 17.8 10-20 Random Glucose 116 137 70-99 mg/dl Calcium Level 9.1 8.7 8.5-10.1 mg/dl Total Bilirubin 0.5 0.2-1 mg/dl Aspartate Amino Transf (AST/SGOT) 29 15-37 U/L Alanine Aminotransferase (ALT/SGPT) 43 12-78 U/L Alkaline Phosphatase 43 45-117 U/L Total Protein 6.6 6.4-8.2 gm/dl Albumin 3.7 3.4-5.0 gm/dl Globulin 2.9 2.5-4.0 gm/dl Albumin/Globulin Ratio 1.3 0.9-2 Phosphorus Level 2.7 2.5-4.9 mg/dl Magnesium Level 2.0 1.8-2.4 mg/dl Assessment & Plan 07/31/16- s/p repair incarcerated Rt inguinal hernia - will d/c martínez adv diet , cont IV atbx for now- can start Eliquis 2.5 bid tonight- plan to leave drain on d/c- ? tomorrow and have him go back on usual Eliquis dose at home- no Lovenox
--- NOTE | 2016-07-31 08:53 | Anesthesiology Progress Note ---
Anesthesia Post Op Note Date & Time July 31, 2016 at 08:53 Vital Signs Vital Signs Past 12 Hours Date Time Temp Pulse Resp B/P Pulse Ox O2 Delivery O2 Flow Rate FiO2 07/31/16 08:37 37.1 91 16 143/83 93 07/31/16 04:04 37.1 75 18 130/83 96 Nasal Cannula 2.0 07/31/16 04:00 96 Nasal Cannula 2.0 07/31/16 00:00 93 Room Air 07/31/16 00:00 65 17 116/70 93 Room Air 07/30/16 23:00 37.1 85 18 105/73 97 Nasal Cannula 2.0 07/30/16 22:15 36.9 90 18 124/87 84 Nasal Cannula 3.0 07/30/16 21:30 36.8 83 20 141/106 97 Nasal Cannula 3.0 Notes Mental Status: alert / awake / arousable, participated in evaluation Pt Amnestic to Procedure: Yes Nausea / Vomiting: adequately controlled Pain: adequately controlled Airway Patency, RR, SpO2: stable & adequate BP & HR: stable & adequate Hydration State: stable & adequate Anesthetic Complications: no major complications apparent
[2016-07-31] MEDS: LOSARTAN POTASSIUM 50 MG TAB PO SCH (08:59)
[2016-07-31] MEDS: DOCUSATE SODIUM/SENNA 50/8.6MG TAB PO SCH ×2 (08:59→20:54)
[2016-07-31] MEDS: MAGNESIUM HYDROXIDE SUSP 30 ML UDC PO SCH ×2 (08:59→20:54)
[2016-07-31] MEDS: LACTATED RINGER'S 1000ML 1,000 ML IV SCH ×2 (08:59→22:39)
[2016-07-31] MEDS ORDERED: APIXABAN 2.5 MG TAB PO SCH ×2 (09:00→21:00)
[2016-07-31] MEDS ORDERED: HEPARIN SOD 5000 UNIT/0.5 ML CARP SQ SCH (09:00)
--- NOTE | 2016-07-31 09:47 | Hospitalist Progress Note ---
Hospitalist Progress Note Date of Service July 31, 2016. (Kimberly Muro ., CAROLINE) Subjective Pt evaluation today including: conversation w/ patient, physical exam, chart review, lab review, review of inpatient medication list Voiding: no voiding problems, no incontinence Patient states he is feeling well postop. Pain is well controlled. Patient is eating and drinking OK. +flatus postop. Patient denies any fever, chills, sweats , lightheadedness, dizziness, vision changes, CP, palpitations, edema, SOB, wheezing, cough, abdominal pain, nausea, vomiting, diarrhea, urinary symptoms, melena, numbness/tingling, weakness, muscle/joint pain, anxiety/depression, active bleeding, or new skin discoloration/changes. (Kimberly Muro ., TYSONC) Medications Current Inpatient Medications Medications (Trade) Dose Ordered Sig/Michael Route Start Time Stop Time Status Last Admin Dose Admin Losartan Potassium 100 mg 100 mg DAILY PO 07/31/16 09:00 08/30/16 08:59 07/31/16 08:59 100 MG Lactated Ringer's 1,000 ml @ 75 mls/hr [id number] IV 07/30/16 19:44 08/29/16 19:43 07/31/16 08:59 75 MLS/HR Cefazolin Sodium/ Dextrose (Ancef Iv/D5 50ml) 60 ml @ 100 mls/hr Q8@0400,1200,2000 IV 07/31/16 04:00 08/10/16 03:59 07/31/16 05:02 100 MLS/HR Hydromorphone HCl (Dilaudid Inj) 0.5 mg Q3H PRN IV 07/30/16 19:45 08/13/16 19:44 Hydromorphone HCl (Dilaudid Inj) 1 mg Q3H PRN IV 07/30/16 19:45 08/13/16 19:44 Hydromorphone HCl (Dilaudid Inj) 2 mg Q3H PRN IV 07/30/16 19:45 08/13/16 19:44 Magnesium Hydroxide (Milk Of Magnesia Susp) 30 ml BID PO 07/31/16 09:00 08/30/16 08:59 07/31/16 08:59 30 ML Oxycodone/ Acetaminophen (Percocet 5-325mg Tab) 1 tab Q4H PRN PO 07/30/16 19:45 08/13/16 19:44 07/31/16 07:24 1 TAB Oxycodone/ Acetaminophen 2 tab 2 tab Q4H PRN PO 07/30/16 19:45 08/13/16 19:44 Promethazine HCl/ Sodium Chloride (Phenergan Inj/ Nss 50ml) 51 ml @ 204 mls/hr Q6H PRN IV 07/30/16 19:45 08/29/16 19:44 Ondansetron HCl (Zofran Inj) 4 mg Q6H PRN IV 07/30/16 19:45 08/29/16 19:44 Senna/Docusate Sodium 1 tab 1 tab BID PO 07/30/16 22:00 08/29/16 21:59 07/31/16 08:59 1 TAB Promethazine HCl/ Sodium Chloride (Phenergan Inj/ Nss 50ml) 50.5 ml @ 204 mls/hr Q6H PRN IV 07/30/16 20:00 08/29/16 19:59 Hydralazine HCl (HydrALAZINE INJ) 10 mg Q4H PRN IV. 07/30/16 20:30 08/29/16 20:29 Metoprolol Tartrate (Lopressor Iv) 5 mg Q4 PRN IV 07/30/16 20:30 08/29/16 20:29 Heparin Sodium (Porcine) (Heparin Sq 5000 Unit/0.5ml) 5,000 unit Q12H SQ 07/31/16 09:00 08/30/16 08:59 Apixaban (Eliquis Tab) 2.5 mg BID PO 07/31/16 21:00 08/30/16 20:59 (Kimberly Muro, TYSONC) Objective Vital Signs Date Time Temp Pulse Resp B/P Pulse Ox O2 Delivery O2 Flow Rate FiO2 07/31/16 08:37 37.1 91 16 143/83 93 07/31/16 04:04 37.1 75 18 130/83 96 Nasal Cannula 2.0 07/31/16 04:00 96 Nasal Cannula 2.0 07/31/16 00:00 93 Room Air 07/31/16 00:00 65 17 116/70 93 Room Air 07/30/16 23:00 37.1 85 18 105/73 97 Nasal Cannula 2.0 07/30/16 22:15 36.9 90 18 124/87 84 Nasal Cannula 3.0 07/30/16 21:30 36.8 83 20 141/106 97 Nasal Cannula 3.0 07/30/16 20:50 36.8 87 20 151/87 95 Nasal Cannula 4.0 07/30/16 20:50 80 95 Nasal Cannula 4.0 07/30/16 20:40 37 82 16 135/99 99 Nasal Cannula 2 07/30/16 20:30 37 74 16 153/99 100 Nasal Cannula 2 07/30/16 20:20 60 16 129/94 100 Nasal Cannula 2 07/30/16 20:10 68 16 147/87 100 Mask 10 07/30/16 20:00 80 16 128/96 99 Mask 10 07/30/16 19:51 36.4 89 16 137/83 99 Mask 10 07/30/16 17:20 76 20 156/102 96 Room Air 07/30/16 15:22 36.8 62 20 148/98 96 Room Air (Kimberly Muro ., PA-C) Physical Exam General Appearance: no apparent distress Eyes: normal inspection, PERRL ENT: hearing grossly normal Neck: supple Respiratory/Chest: lungs clear, no respiratory distress, no accessory muscle use Cardiovascular: + irregularly irregular (rate controlled) Abdomen: normal bowel sounds, non tender, soft Extremities: no pedal edema, no calf tenderness Neurologic/Psychiatric: alert, normal mood/affect, oriented x 3 Skin: normal color, warm/dry, no rash (Kimberly Muro ., PA-C) Laboratory Results Last 24 Hours Test 07/30/16 15:34 07/31/16 05:01 07/31/16 07:04 White Blood Count 6.37 K/uL 5.65 K/uL Red Blood Count 4.81 M/uL 4.61 M/uL Hemoglobin 15.6 g/dL 15.2 g/dL Hematocrit 47.0 % 45.1 % Mean Corpuscular Volume 97.7 fL 97.8 fL Mean Corpuscular Hemoglobin 32.4 pg 33.0 pg Mean Corpuscular Hemoglobin Concent 33.2 g/dl 33.7 g/dl Platelet Count 177 K/uL 161 K/uL Mean Platelet Volume 10.8 fL 11.0 fL Neutrophils (%) (Auto) 64.1 % Lymphocytes (%) (Auto) 26.1 % Monocytes (%) (Auto) 7.1 % Eosinophils (%) (Auto) 1.7 % Basophils (%) (Auto) 0.8 % Neutrophils # (Auto) 4.09 K/uL Lymphocytes # (Auto) 1.66 K/uL Monocytes # (Auto) 0.45 K/uL Eosinophils # (Auto) 0.11 K/uL Basophils # (Auto) 0.05 K/uL RDW Standard Deviation 46.2 fL 46.7 fL RDW Coefficient of Variation 12.9 % 13.0 % Immature Granulocyte % (Auto) 0.2 % Immature Granulocyte # (Auto) 0.01 K/uL Sodium Level 142 mmol/L 141 mmol/L Potassium Level 4.0 mmol/L 4.3 mmol/L Chloride Level 108 mmol/L 108 mmol/L Carbon Dioxide Level 25 mmol/L 27 mmol/L Anion Gap 9.0 mmol/L 6.0 mmol/L Blood Urea Nitrogen 18 mg/dl 14 mg/dl Creatinine 0.89 mg/dl 0.79 mg/dl Est Creatinine Clear Calc Drug Dose 123.4 ml/min 139.0 ml/min Estimated GFR () 107.0 112.3 Estimated GFR (Non- 92.3 96.9 BUN/Creatinine Ratio 20.7 17.8 Random Glucose 116 mg/dl 137 mg/dl Calcium Level 9.1 mg/dl 8.7 mg/dl Total Bilirubin 0.5 mg/dl Aspartate Amino Transf (AST/SGOT) 29 U/L Alanine Aminotransferase (ALT/SGPT) 43 U/L Alkaline Phosphatase 43 U/L Total Protein 6.6 gm/dl Albumin 3.7 gm/dl Globulin 2.9 gm/dl Albumin/Globulin Ratio 1.3 Phosphorus Level 2.7 mg/dl Magnesium Level 2.0 mg/dl Hepatitis C Antibody Screen NEG Prothrombin Time 11.0 SECONDS Prothromb Time International Ratio 1.0 (Kimberly Muro, TYSONC) Assessment and Plan 61 y/o male, with PMHx of HTN and a.fib, s/p incarcerated right inguinal hernia repair by Dr. Beaver on 07/31. - Surgical management, PT/OT, pain management, and DVT prophylaxis as per surgical team A.fib: - Continue Eliquis as per surgical team -- Dr. Beaver consulted Dr. Montes De Oca regarding Eliquis dosage- she was under assumption Eliquis treatment was for PE/DVT and 2.5 mg BID was ordered; patient takes anticoagulation for a.fib- correct dosage is 5 mg BID- corrected. Additionally, patient is almost at threshold for weight to continue Eliquis- will need to discuss further w/ knife edger/PCP outpt. - Denies any rate control medications or h/o RVR HTN: - Continue Losartan 100 daily - IV Hydralazine and Lopressor PRN GI Prophylaxis: IV Zofran PRN, Milk of Mag PRN DVT prophylaxis: Heparin and Eliquis as per surgical team Dispo: Discharge as per primary team Thank you for this consultation. We will continue to follow. (Kimberly Muro ., PA-C) PA Physician Supervision Note: I interviewed and examined the patient. Discussed with Kimberly Scott PAC and agree with findings and plan as documented in the note. Any exceptions or clarifications are listed here: None This pt is doing well after urgent inguinal hernia repair, eating lunch vitals stable car is irreg lungs are clear Afib stable, surgery has restarted anticoagulation, supportive care Documented By: Waldemar Serrato (Waldemar Serrato M.D.)
[2016-07-31] MEDS ORDERED: NURSING VERBAL MED ORDER ONE (12:00)
[2016-07-31] MEDS: APIXABAN 2.5 MG TAB PO SCH (20:55)
[2016-08-01] MEDS: CEFAZOLIN IV 2,000 MG in DEXTROSE 5% 50ML 50 ML IV SCH (03:48)
[2016-08-01 04:00] VITALS: BP 158/101; PULSE 78; TEMP 36.7; O2SAT 94
[2016-08-01 08:34] VITALS: BP 145/90; PULSE 92; TEMP 36.7; O2SAT 95
[2016-08-01] MEDS: MAGNESIUM HYDROXIDE SUSP 30 ML UDC PO SCH (08:55)
[2016-08-01] MEDS: DOCUSATE SODIUM/SENNA 50/8.6MG TAB PO SCH (08:56)
[2016-08-01] MEDS: LOSARTAN POTASSIUM 50 MG TAB PO SCH (08:56)
[2016-08-01] MEDS: APIXABAN 2.5 MG TAB PO SCH (08:57)
--- NOTE | 2016-08-01 11:35 | Surgery Progress Note ---
Surgery Progress Note Date of Service August 01, 2016. Subjective + diet (tolerated regular diet), + feeling well, + flatus, + pain controlled, No bowel movement, No nausea, No vomiting Objective Vital Signs: Date Time Temp Pulse Resp B/P Pulse Ox O2 Delivery O2 Flow Rate FiO2 08/01/16 08:34 36.7 92 18 145/90 95 Room Air 08/01/16 04:00 36.7 78 18 158/101 94 Room Air 08/01/16 04:00 Nasal Cannula 2.0 08/01/16 00:00 Nasal Cannula 2.0 07/31/16 23:57 37.0 76 18 143/89 95 Room Air 07/31/16 20:00 Nasal Cannula 2.0 07/31/16 19:03 36.8 85 20 143/88 95 Room Air 07/31/16 16:00 Nasal Cannula 2.0 07/31/16 15:56 36.7 82 18 139/88 95 Room Air 07/31/16 12:09 36.6 78 18 131/76 94 07/31/16 12:00 Nasal Cannula 2.0 Physical Exam: ANGELA drainage (20 cc yesterday, 20 cc last shift, serosanguinous) Abdomen: normal bowel sounds, non tender, non distended Incision(s): clean, dry Assessment & Plan S/P repair of incarcerated right inguinal hernia Doing well D/C to home Follow up with Dr. Beaver next week Leave drain in place
[2016-08-01 12:32] VITALS: BP 126/79; PULSE 86; TEMP 36.9; O2SAT 93
[2016-08-01 12:40] VITALS: BP 126/79; PULSE 86; TEMP 36.9; O2SAT 93
--- NOTE | 2016-08-04 07:07 | DISCHARGE SUMMARY ---
PRINCIPAL DIAGNOSIS: Incarcerated right inguinal hernia. PROCEDURES: The patient underwent emergency right inguinal hernia repair. HISTORY OF PRESENT ILLNESS: The patient is a 61-year-old male doing quite well until he began to experience severe pain the day of admission through the Emergency Room. He did present to the Emergency Room and on workup was found to have an incarcerated right inguinal hernia. His history was significant for being on Eliquis. HOSPITAL COURSE: On 07/30/2016 patient was taken emergently to the operating room for emergent repair of incarcerated right inguinal hernia. There was a significant concern that the patient had strangulated small bowel within the hernia. Findings were that he did have small bowel within the hernia which was incarcerated but there was no evidence of infarction or severe ischemia. He did undergo hernia repair and then progressed relatively well advancing in both diet and activity and felt stable for discharge home on 08/01/2016 to be followed in the surgical clinic. He did have a drain in place which was left to be removed in the office.
== END 2016-08-01 13:00 | disposition home or self-care (01) | DRG 337 ==
LOC: ENRESERVDT → ENRESERVTM → EDBD 15:10 → C.EDC 15:11 → C.2E 19:49
PROVIDERS: ADMIT Surgery; ATTEND Surgery
PROC: 0VBF0ZZ Excision of Right Spermatic Cord, Open Approach (ICD-10-PCS; principal; 2016-07-30 17:00)
PROC: 0DN80ZZ Release Small Intestine, Open Approach (ICD-10-PCS; principal; 2016-07-30 17:00)
DX: K40.30 Unilateral inguinal hernia, with obstruction, without gangrene, not specified as recurrent (principal); D17.6 Benign lipomatous neoplasm of spermatic cord; I48.91 Unspecified atrial fibrillation; Z83.3 Family history of diabetes mellitus; Z87.891 Personal history of nicotine dependence; I10 Essential (primary) hypertension

== ENCOUNTER → 2017-01-09 | Outpatient (CLI) | payer BC ==
[~2017-01-09] MED LIST changes: +APIX1TAB3 PO; -ASPEC325 PO; +CEPH500C2 PO; +CHOL100027 PO; -CZR50 PO; +FERR1TAB23 PO; +LOSA100T65 PO; +MULT-513 PO; -OXYC-409 PO; +OXYC-57 PO; -PRT/20 PO
[2017-01-09 13:26] LABS: BLOOD UREA NITROGEN 16 mg/dl (7-18); BUN/CREATININE RATIO 17.8 (10-20); CALCIUM 8.6 mg/dl (8.5-10.1); CARBON DIOXIDE 26 mmol/L (21-32); CHLORIDE 108 mmol/L (98-107); CHOLESTEROL 185 mg/dl (0-200); GLUCOSE 102 mg/dl (70-99); SODIUM 139 mmol/L (136-145); TRIGLYCERIDES 110 mg/dl (0-150); VERY LOW DENSITY LIPOPROT CALC 22 mg/dl
[2017-01-09 13:30] LABS: HDL CHOLESTEROL 46 mg/dl; LDL CHOLESTEROL CALCULATED 117 mg/dl
== END | disposition home or self-care (01) ==
LOC: C.LABPVFM 08:10
PROVIDERS: ATTEND Family Medicine
DX: Z00.00 Encounter for general adult medical examination without abnormal findings (principal); E78.5 Hyperlipidemia, unspecified

== ENCOUNTER → 2017-02-09 | Outpatient (CLI) | payer BC ==
[~2017-02-09] MED LIST changes: -CEPH500C2 PO; -OXYC-57 PO
--- NOTE | 2017-02-09 08:48 | DIAGNOSTIC IMAGING REPORT ---
ABDOMEN ULTRASOUND FOR HERNIA CLINICAL HISTORY: R22.2 Abdominal wall lump to the left of midline, 4 x 3.5 cm.ULTR COMPARISON STUDY: Abdomen and pelvis CT 07/30/2016. FINDINGS: Within the midabdomen to the left of midline there is a small fat-containing ventral hernia. The hernia sac measures 2.1 cm. The hernia neck measures 1 cm. This is nonreducible. IMPRESSION: Small fat-containing nonreducible ventral hernia within the midabdomen to the left of midline. Electronically signed by: Evangelista Guzman M.D. 02/09/2017 8:46 AM Dictated Date/Time: 02/09/2017 8:45 AM
== END | disposition home or self-care (01) ==
LOC: C.ULTR 08:28
PROVIDERS: ATTEND Family Medicine Adult Medicine
DX: R22.2 Localized swelling, mass and lump, trunk (principal); K43.9 Ventral hernia without obstruction or gangrene

== ENCOUNTER 2022-04-27 00:01 | Observation (INO) ==
--- NOTE | 2022-04-27 00:33 | Emergency Department Note ---
History of Present Illness General Chief complaint: Abdominal Pain Stated complaint: SEVERE ABD CRAMPS,EXCESSIVE BLOATING,BURPING Time Seen by Provider: 04/27/22 00:14 History of Present Illness 66-year-old male presents emergency department states that he had an onset of abdominal pain that was midline that started at 5 PM this evening. Patient states that he was eating dinner. Patient has a history of ventral hernias and multiple surgeries in his abdomen for hernias and bowel obstruction. Patient denies nausea vomiting. Patient denies back pain flank pain urinary symptoms. Patient states that the pain is actually decreased since he presented to the emergency department. Home Medications Medication Instructions Recorded Confirmed Type cholecalciferol (vitamin D3) 25 1,000 units PO QAM 02/08/19 03/16/22 History mcg (1,000 unit) capsule ferrous sulfate 325 mg (65 mg 325 mg PO .COMPLEX 02/08/19 03/16/22 History iron) tablet multivitamin (Daily Multi-Vitamin 1 tab PO QAM 02/08/19 03/16/22 History tablet) apixaban 5 mg tablet (Eliquis) 5 mg PO BID #180 tabs 07/23/21 03/16/22 Rx amlodipine 5 mg tablet 5 mg PO QAM 03/09/22 03/16/22 History amoxicillin 500 mg tablet 500 mg PO TID 03/09/22 03/16/22 History losartan 100 mg tablet 100 mg PO QAM #90 tabs 04/16/22 Rx Allergies Allergy/AdvReac Type Severity Reaction Status Date / Time No Known Drug Allergies Allergy Verified 03/09/22 13:48 Past Med/Surg History Medical History Anticoagulant long-term use Atrial fibrillation, permanent COPD (chronic obstructive pulmonary disease) denies DVT of right axillary vein, acute Right arm s/p rotator cuff surgery Eye injury Right eye injury (scar) as a child, full vision GI bleed Hx prior to 2013 when on ASA 325mg HTN (hypertension) Hyperlipidemia Obesity Right bundle branch block Ventral hernia Surgical History H/O removal of cyst H/O vasectomy History of appendectomy History of cataract surgery History of colonoscopy History of esophagogastroduodenoscopy (EGD) History of foot surgery right buionectomy History of hernia repair History of inguinal hernia repair bilateral History of repair of rotator cuff Right History of tonsillectomy History of umbilical hernia repair History of ventral hernia repair Family History Father Arthritis Deep vein thrombosis Mother Cancer Diabetes Grandmother Diabetes Sister Deep vein thrombosis Hypertension Unknown Lung cancer Denies family history of Ovarian cancer Prostate cancer Myocardial infarction Breast cancer Colorectal cancer Social History (Updated 02/18/22 @ 14:21 by Pippa Turner LPN) Smoking Status: Never smoker Second Hand Exposure: No; Hx Alcohol Use: Yes Alcohol type: beer Hx Substance Use: No Preferred Language: Barbadian Communication Ability: Effective Hearing Ability: Normal Card Stripper Required: No Beliefs That Will Affect Care: None marital status: Current Living Situation: Spouse current occupational status: retired How many Children do You have: 2 Feels Safe at Home: Yes Childhood Exposure to Second-Hand Smoke: Yes caffeine: Yes Dental Care, Regularly: Yes Physical Activity Frequency: 1-2 Times per Week Seatbelt Use: always Sunscreen Use: No Assistive Devices: Glasses Review of Systems A total of 10 systems reviewed and were otherwise negative Gastrointestinal: + abdominal pain Physical Exam Vital Signs Vital Signs - 24 hr 04/27/22 00:11 04/27/22 01:39 04/27/22 02:35 Temperature 36.8 C Temperature Source Temporal Artery Scan Pulse Rate 93 H Pulse Rate [Right Radial] 84 Pulse Rhythm [Right Radial] Regular Pulse Strength [Right Radial] Normal Respiratory Rate 18 14 Respiratory Effort / Characteristics Non-Labored Spontaneous Non-Labored Respiratory Depth Normal Normal Respiratory Pattern Regular Blood Pressure 159/95 H Blood Pressure [Right Arm] 153/100 H Blood Pressure Mean 116 Blood Pressure Mean [Right Arm] 117 Blood Pressure Position Sitting Pulse Oximetry 95 97 96 Oxygen Delivery Method Room Air Room Air Room Air Sepsis Recent Fever Within 48 Hours No Sepsis New/Unexplained Change in Mental Status No Sepsis Action Taken by Nursing No Action Required GENERAL: Patient is awake alert in no acute distress patient is resting comfortably and showing no signs of anxiety EYES: The conjunctivae are clear. The pupils are round and reactive. EARS, NOSE, MOUTH AND THROAT: The nose is without any evidence of any deformity. Mucous membranes are moist. Tongue is midline. NECK: The neck is nontender and supple. RESPIRATORY: Normal respiratory effort is noted there is no evidence of wheezing rhonchi or rales CARDIOVASCULAR: Regular rate and rhythm noted there no murmurs rubs or gallops normal S1 normal S2. GASTROINTESTINAL: The abdomen is soft. Abdomen is nontender. Patient has a large midline surgical scar there is no obvious defect there is no abnormal aortic pulsations or masses BACK: No midline tenderness or or step-off noted range of motion in flexion extension as well as rotation no signs of muscle spasm noted MUSCULOSKELETAL/EXTREMITIES: There is no evidence of gross deformity full range of motion is noted in the hips and shoulders. SKIN: There is no obvious evidence of any rash. There are no petechiae, pallor or cyanosis noted. NEUROLOGIC: Patient is awake alert and oriented x3 strength is symmetric PSYCH: Normal affect Course Reevaluation(s) Reevaluation #1: Patient is resting in no distress on repeat examination. I discussed evaluation with the patient the patient's at bedside. The concern is for small bowel obstruction I had radiology clarify and in fact they are calling the patient's CAT scan the small bowel obstruction. The case was discussed with the [facility]ist for admission Time: 04:10 Consultations Consultation #1: Case was discussed with the [facility]ist for admission and accepted patient for small bowel obstruction Time: 04:10 Administered Medications Discontinued Medications Ioversol (Optiray 350 100ml) 100 ml IV ONCE ONE Stop: 04/27/22 04:13 Last Admin: 04/27/22 04:13 Dose: 87 ml Documented By: NIALL Medical Decision Making Medical Records Attestation: I reviewed the patient's medical records. Home Medications Current Medication List: was personally reviewed by me Laboratory Data Attestation: I reviewed the patient's lab results. 04/27/22 00:42 04/27/22 00:42 Lab Results 04/27/22 04/27/22 04/27/22 Range/Units 00:42 00:42 01:27 WBC 8.78 (4.8-10.8) K/ul RBC 4.73 (4.70-6.10) M/uL Hgb 15.8 (14.0-18.0) g/dl Hct 45.6 (42.0-52.0) % MCV 96.4 (80.0-100.0) fL MCH 33.4 (25.0-34.0) pg MCHC 34.6 (32.0-36.0) g/dL RDW Std Deviation 44.6 (36.4-46.3) fL RDW Coeff of Reynaldo 12.5 (11.5-14.5) % Plt Count 177 (130-400) K/uL MPV 10.6 (9.4-12.4) fL Immature Gran % (Auto) 0.2 % Neut % (Auto) 84.6 % Lymph % (Auto) 7.4 % [place] % (Auto) 6.8 % Eos % (Auto) 0.3 % Baso % (Auto) 0.7 % Neut # (Auto) 7.42 H (1.40-6.50) K/uL Lymph # (Auto) 0.65 L (1.2-3.4) K/uL [place] # (Auto) 0.60 H (0.11-0.59) K/uL Eos # (Auto) 0.03 (0-0.50) K/uL Baso # (Auto) 0.06 (0-0.2) K/uL Immature Gran # (Auto) 0.02 (0.01-0.20) K/uL Sodium 137 (136-145) mmol/L Potassium 4.6 (3.5-5.1) mmol/L Chloride 104 (98-107) mmol/L Carbon Dioxide 25 (21-32) mmol/L Anion Gap 8 (3-11) BUN 18 (6-23) mg/dl Creatinine 0.92 (0.6-1.4) mg/dl Est Cr Clr Drug Dosing 114.6 ml/min Est GFR ( Amer) 100.1 ml/min Est GFR (Non-Af Amer) 86.4 ml/min BUN/Creatinine Ratio 19.6 (10-20) Glucose 127 H (70-99(Fasting)) mg/dl Calcium 9.1 (8.5-10.1) mg/dl Total Bilirubin 0.8 (0.2-1.0) mg/dl AST 33 (13-39) U/L ALT 29 (7-52) U/L Alkaline Phosphatase 43 (34-104) U/L Troponin I High Sens 3.2 (0-20) pg/ml Total Protein 7.0 (6.0-8.3) gm/dl Albumin 4.3 (3.4-5.0) gm/dl Globulin 2.7 (2.5-4.0) gm/dl Albumin/Globulin Ratio 1.6 (0.9-2) Lipase 8 L (11-82) U/L Urine Color Dark Yellow Urine Appearance Cloudy A (Clear) Urine pH 5.5 (4.5-7.5) Ur Specific [place] 1.032 H (1.000-1.030) Urine Protein Trace H (Negative) Urine Glucose (UA) Negative (Negative) Urine Ketones Trace H (Negative) Urine Blood Negative (Negative) Urine Nitrite Negative (Negative) Urine Bilirubin Negative (Negative) Urine Urobilinogen Negative (Negative) Ur Leukocyte Esterase Negative (Negative) Urine WBC (Auto) 1-5 (0-5) /hpf Urine RBC (Auto) 5-10 H (0-4) /hpf U Hyaline Cast (Auto) 10-30 H (0-5) /lpf U Epithel Cells (Auto) 10-20 H (0-5) /lpf Urine Bacteria (Auto) Negative (Negative) Imaging Data Attestation: I personally reviewed and interpreted this imaging study as follows: My Impression: CT reviewed by me and appreciated stat rad interpretation Radiologist's Impression: * Patient: ANA SORTO (Male) : 55 Status: ER Date: 04/27/22 03:06 Room #: History: MID ABD PAIN Slices: [id number] Priors: Tech: MayBj ramon @ [phone] Exams: CT ABDOMEN & PELVIS With Contrast Contrast: IV Amt: 86 ML OPTIRAY 350 Accession Numbers: [id number] Referring Physician: REFERRED SELF Preliminary Findings Only See Final Report For Complete Findings CT ABDOMEN & PELVIS With Contrast: Cardiomegaly. Fatty infiltration of liver. Cholelithiasis. No CT evidence to suggest acute c holecystitis. Postoperative changes of the cyst stomach. Atrophy of the pancreas. Mildly dilated loops of small bowel within the mid abdomen with a transition between dilated and nondilated loops of small bowel within the right lower quadrant. No free air. Diverticulosis without evidence of divertic ulitis. Radiologist: Filemon Gonsalez MD3:44 AM10 days left ECG Data Attestation: I personally reviewed and interpreted this ECG as follows: Additional Comments: EKG interpreted by me atrial fibrillation rate of 80 is present, normal axis no obvious ST segment elevation or depression, no prior EKG currently available for review MDM Narrative Medical decision making differential diagnosis includes gastritis gastroenteritis colitis ileus, bowel obstruction. Plan is to check labs, EKG, CT Independent history was provided by the patient's at bedside Medical records were reviewed by me Nursing notes were reviewed by me and appreciated Patient will be admitted for small bowel obstruction Impression & Plan SBO (small bowel obstruction) Discharge Plan Visit Data Chief Complaint: Abdominal Pain Stated Complaint: SEVERE ABD CRAMPS,EXCESSIVE BLOATING,BURPING ED Provider: Ana Dale Discharge Problem: SBO (small bowel obstruction) Patient Disposition: Admitted As Inpatient Forms Stand Alone Forms: My [facility] Prescriptions Prescriptions: No Action Eliquis 5 mg tablet 5 mg PO BID Qty: 180 3RF Rx Instructions: will be held after pm dose losartan 100 mg tablet 100 mg PO QAM Qty: 90 3RF cholecalciferol (vitamin D3) 1,000 unit capsule 1,000 units PO QAM ferrous sulfate 325 mg (65 mg iron) tablet 325 mg PO .COMPLEX Rx Instructions: 325 mg PO three times a week; multivitamin [Daily Multi-Vitamin] tablet 1 tab PO QAM amoxicillin 500 mg Tablet 500 mg PO TID Rx Instructions: for 7 days for oral infection amlodipine 5 mg tablet 5 mg PO QAM Referrals Referrals: Hortencia Moser MD [Primary Care Provider] -
[2022-04-27 00:53] LABS: Basophils # (auto) 0.06 K/uL (0-0.2); Basophils % (auto) 0.7 %; Eosinophils # (auto) 0.03 K/uL (0-0.50); Eosinophils % (auto) 0.3 %; Hematocrit (blood only) 45.6 % (42.0-52.0); Hemoglobin 15.8 g/dl (14.0-18.0); Immature Granulocytes # (auto) 0.02 K/uL (0.01-0.20); Immature Granulocytes % (auto) 0.2 %; Lymphocytes # (auto) 0.65 K/uL (1.2-3.4); Lymphocytes % (auto) 7.4 %; Mean Corpuscular Hemoglobin 33.4 pg (25.0-34.0); Mean Corpuscular Hgb Conc 34.6 g/dL (32.0-36.0); Mean Corpuscular Volume 96.4 fL (80.0-100.0); Mean Platelet Volume 10.6 fL (9.4-12.4); Monocytes % (auto) 6.8 %; Neutrophils # (auto) 7.42 K/uL (1.40-6.50); Neutrophils % (auto) 84.6 %; Platelet Count 177 K/uL (130-400); RDW Coefficient of Variation 12.5 % (11.5-14.5); RDW Standard Deviation 44.6 fL (36.4-46.3); Red Blood Count 4.73 M/uL (4.70-6.10); White Blood Count 8.78 K/ul (4.8-10.8)
[2022-04-27 01:19] LABS: Albumin Level 4.3 gm/dl (3.4-5.0); Bilirubin,Total 0.8 mg/dl (0.2-1.0); Calcium 9.1 mg/dl (8.5-10.1); Potassium 4.6 mmol/L (3.5-5.1)
[2022-04-27 01:20] LABS: Troponin I High Sensitivity 3.2 pg/ml (0-20)
[2022-04-27 01:25] LABS: Albumin Globulin Ratio 1.6 (0.9-2); BUN Creatinine Ratio 19.6 (10-20); Creatinine Clr Calc Pharmacy 114.6 ml/min; Est GFR (African American) 100.1 ml/min; Est GFR (Non-African American) 86.4 ml/min; Globulin 2.7 gm/dl (2.5-4.0)
[2022-04-27 02:19] LABS: Appearance Urine Cloudy (Clear); Bacteria Urine Automated Negative (Negative); Bilirubin Urine Negative (Negative); Blood Urine Negative (Negative); Color Urine Dark Yellow; Glucose Urine UA Negative (Negative); Ketones Urine Trace (Negative); Leukocyte Esterase Urine Negative (Negative); Nitrite Urine Negative (Negative); Protein Urine Trace (Negative); Specific Gravity Urine 1.032 (1.000-1.030); Urobilinogen Urine Negative (Negative); pH Urine 5.5 (4.5-7.5)
[2022-04-27] MEDS ORDERED: OPTIRAY 350 100ml IV ONE ×2 (02:19→04:12)
--- NOTE | 2022-04-27 05:30 | History & Physical Report ---
Date of Service April 27, 2022 Assessment & Plan (1) SBO (small bowel obstruction): Plan: 66-year-old male with history of atrial fibrillation on apixaban anticoagulation, COPD, hypertension, hyperlipidemia, multiple ventral hernias status post repair with mesh in place presenting with acute onset of diffuse abdominal pain that occurred this evening after dinner. Patient with also abdominal distention and increased belching. Admit to medical Conservative therapyn.p.o., gentle IV fluids and electrolyte repletion, antiemetics and pain control Abdomen is distended. Patient denies pain or nausea at this time. We will hold off on NG tube for now Zofran as needed Morphine as needed (2) Afib: Plan: Rate controlled atrial fibrillation on apixaban anticoagulation Continue apixaban 5 mg p.o. twice daily Continue to monitor (3) HTN (hypertension): Plan: Blood pressure mildly elevated presently 153/100 Ensure proper pain control Continue losartan 100 mg p.o. every morning Continue amlodipine 5 mg p.o. every morning Continue to monitor blood pressure FENLR at 125 mL/h, monitor electrolytes and replete as needed, n.p.o. for now Ppx:continue patient's apixaban for atrial fibrillation as above Codefull per discussion with patient Dispositionadmit to medical History of Present Illness Chief Complaint: Back pain Primary Care Provider: Hortencia Moser MD Mick Soto is a 66yo male with history of AF on Apixaban anticoagulation, COPD, HTN, HLP and Ventral Hernia presenting with acute abdominal pain. Patient was eating dinner when he developed acute diffuse abdominal cramping. He has been belching a lot and has some increased abdominal distention. He denies nausea. Pain has resolved. No history of prior bowel obstructions. Patient with multiple hernias with repair. IN the ER he is afebrile, HD stable Pain is well controlled at present Allergies Allergy/AdvReac Type Severity Reaction Status Date / Time No Known Drug Allergies Allergy Verified 03/09/22 13:48 Home Medications Medication Instructions Recorded Confirmed Type cholecalciferol (vitamin D3) 25 1,000 units PO QAM 02/08/19 03/16/22 History mcg (1,000 unit) capsule ferrous sulfate 325 mg (65 mg 325 mg PO .COMPLEX 02/08/19 03/16/22 History iron) tablet multivitamin (Daily Multi-Vitamin 1 tab PO QAM 02/08/19 03/16/22 History tablet) apixaban 5 mg tablet (Eliquis) 5 mg PO BID #180 tabs 07/23/21 03/16/22 Rx amlodipine 5 mg tablet 5 mg PO QAM 03/09/22 03/16/22 History amoxicillin 500 mg tablet 500 mg PO TID 03/09/22 03/16/22 History losartan 100 mg tablet 100 mg PO QAM #90 tabs 04/16/22 Rx Past Med/Surg History Medical History Anticoagulant long-term use Atrial fibrillation, permanent COPD (chronic obstructive pulmonary disease) denies DVT of right axillary vein, acute Right arm s/p rotator cuff surgery Eye injury Right eye injury (scar) as a child, full vision GI bleed Hx prior to 2013 when on ASA 325mg HTN (hypertension) Hyperlipidemia Obesity Right bundle branch block Ventral hernia Surgical History H/O removal of cyst H/O vasectomy History of appendectomy History of cataract surgery History of colonoscopy History of esophagogastroduodenoscopy (EGD) History of foot surgery right buionectomy History of hernia repair History of inguinal hernia repair bilateral History of repair of rotator cuff Right History of tonsillectomy History of umbilical hernia repair History of ventral hernia repair Family History Father Arthritis Deep vein thrombosis Mother Cancer Diabetes Grandmother Diabetes Sister Deep vein thrombosis Hypertension Unknown Lung cancer Denies family history of Ovarian cancer Prostate cancer Myocardial infarction Breast cancer Colorectal cancer Social History Smoking Status: Never smoker Second Hand Exposure: No; Hx Alcohol Use: Yes Alcohol type: beer Hx Substance Use: No Preferred Language: Luxembourgish Communication Ability: Effective Hearing Ability: Normal Panama Hat Blocker Required: No Beliefs That Will Affect Care: None marital status: Current Living Situation: Spouse current occupational status: retired How many Children do You have: 2 Feels Safe at Home: Yes Childhood Exposure to Second-Hand Smoke: Yes caffeine: Yes Dental Care, Regularly: Yes Physical Activity Frequency: 1-2 Times per Week Seatbelt Use: always Sunscreen Use: No Assistive Devices: Glasses Review of Systems Review of Systems: All systems reviewed & are unremarkable except as noted in HPI & below Physical Exam Physical Exam: General: patient resting comfortably, NAD, non-toxic in appearance, AA&O x 4 Skin: warm, dry, intact, no rashes or lesions HEENT: NC/AT, PERRL, EOMI, anicteric sclera, conjunctiva without injection, external ear normal to inspection and nontender, nares patent, moist mucus membranes, dentition intact, no oropharyngeal lesions, neck supple, trachea midline, no LAD, no thyromegaly, no JVD Heart: +S1/S2, regular with ectopy, no m/r/g Lungs: equal air entry bilaterally, no rales/rhonchi/wheezes Abd: +BS, soft, distended, tender to palpation, no masses/organomegaly/ascites Ext: warm, 2+ pulses in UE/LE bilaterally, no clubbing/cyanosis or edema Neuro: nonfocal, patient AA&O x 4, speech intact, no facial droop, moving all extremities on command with equal strength 5/5 Results & Data Results & Data ([facility]) Vital Signs (Past 12 Hours) Vital Signs Temp Pulse Pulse Resp BP BP Pulse Ox 04/27/22 02:35 84 14 153/100 H 96 04/27/22 01:39 97 04/27/22 00:11 36.8 C 93 H 18 159/95 H 95 O2 Del Method 04/27/22 02:35 Room Air 04/27/22 01:39 Room Air 04/27/22 00:11 Room Air Laboratory Results Laboratory Results WBC 8.78 K/ul (4.8-10.8) 04/27/22 00:42 RBC 4.73 M/uL (4.70-6.10) 04/27/22 00:42 Hgb 15.8 g/dl (14.0-18.0) 04/27/22 00:42 Hct 45.6 % (42.0-52.0) 04/27/22 00:42 MCV 96.4 fL (80.0-100.0) 04/27/22 00:42 MCH 33.4 pg (25.0-34.0) 04/27/22 00:42 MCHC 34.6 g/dL (32.0-36.0) 04/27/22 00:42 RDW Std Deviation 44.6 fL (36.4-46.3) 04/27/22 00:42 RDW Coeff of Reynaldo 12.5 % (11.5-14.5) 04/27/22 00:42 Plt Count 177 K/uL (130-400) 04/27/22 00:42 MPV 10.6 fL (9.4-12.4) 04/27/22 00:42 Immature Gran % (Auto) 0.2 % 04/27/22 00:42 Neut % (Auto) 84.6 % 04/27/22 00:42 Lymph % (Auto) 7.4 % 04/27/22 00:42 [place] % (Auto) 6.8 % 04/27/22 00:42 Eos % (Auto) 0.3 % 04/27/22 00:42 Baso % (Auto) 0.7 % 04/27/22 00:42 Neut # (Auto) 7.42 K/uL (1.40-6.50) H 04/27/22 00:42 Lymph # (Auto) 0.65 K/uL (1.2-3.4) L 04/27/22 00:42 [place] # (Auto) 0.60 K/uL (0.11-0.59) H 04/27/22 00:42 Eos # (Auto) 0.03 K/uL (0-0.50) 04/27/22 00:42 Baso # (Auto) 0.06 K/uL (0-0.2) 04/27/22 00:42 Immature Gran # (Auto) 0.02 K/uL (0.01-0.20) 04/27/22 00:42 Sodium 137 mmol/L (136-145) 04/27/22 00:42 Potassium 4.6 mmol/L (3.5-5.1) 04/27/22 00:42 Chloride 104 mmol/L (98-107) 04/27/22 00:42 Carbon Dioxide 25 mmol/L (21-32) 04/27/22 00:42 Anion Gap 8 (3-11) 04/27/22 00:42 BUN 18 mg/dl (6-23) 04/27/22 00:42 Creatinine 0.92 mg/dl (0.6-1.4) 04/27/22 00:42 Est Cr Clr Drug Dosing 114.6 ml/min 04/27/22 00:42 Est GFR ( Amer) 100.1 ml/min 04/27/22 00:42 Est GFR (Non-Af Amer) 86.4 ml/min 04/27/22 00:42 BUN/Creatinine Ratio 19.6 (10-20) 04/27/22 00:42 Glucose 127 mg/dl (70-99(Fasting)) H 04/27/22 00:42 Calcium 9.1 mg/dl (8.5-10.1) 04/27/22 00:42 Total Bilirubin 0.8 mg/dl (0.2-1.0) 04/27/22 00:42 AST 33 U/L (13-39) 04/27/22 00:42 ALT 29 U/L (7-52) 04/27/22 00:42 Alkaline Phosphatase 43 U/L (34-104) 04/27/22 00:42 Troponin I High Sens 3.2 pg/ml (0-20) 04/27/22 00:42 Total Protein 7.0 gm/dl (6.0-8.3) 04/27/22 00:42 Albumin 4.3 gm/dl (3.4-5.0) 04/27/22 00:42 Globulin 2.7 gm/dl (2.5-4.0) 04/27/22 00:42 Albumin/Globulin Ratio 1.6 (0.9-2) 04/27/22 00:42 Lipase 8 U/L (11-82) L 04/27/22 00:42 Urine Color Dark Yellow 04/27/22 01:27 Urine Appearance Cloudy (Clear) A 04/27/22 01: Urine pH 5.5 (4.5-7.5) 04/27/22 01: Ur Specific [place] 1.032 (1.000-1.030) H 04/27/22 01:27 Urine Protein Trace (Negative) H 04/27/22 01:27 Urine Glucose (UA) Negative (Negative) 04/27/22 01: Urine Ketones Trace (Negative) H 04/27/22 01: Urine Blood Negative (Negative) 04/27/22 01:27 Urine Nitrite Negative (Negative) 04/27/22 01:27 Urine Bilirubin Negative (Negative) 04/27/22 01:27 Urine Urobilinogen Negative (Negative) 04/27/22 01:27 Ur Leukocyte Esterase Negative (Negative) 04/27/22 01:27 Urine WBC (Auto) 1-5 /hpf (0-5) 04/27/22 01:27 Urine RBC (Auto) 5-10 /hpf (0-4) H 04/27/22 01:27 U Hyaline Cast (Auto) 10-30 /lpf (0-5) H 04/27/22 01:27 U Epithel Cells (Auto) 10-20 /lpf (0-5) H 04/27/22 01:27 Urine Bacteria (Auto) Negative (Negative) 04/27/22 01:[address] abdomen and pelvis with contrast: Per stat readcardiomegaly. Fatty infiltration of liver. Cholelithiasis. No CT evidence to suggest acute cholecystitis. Postoperative changes of the cyst stomach. Atrophy of the pancreas. Mildly dilated loops of small bowel within the mid abdomen with a transition between dilated and nondilated loops of small bowel within the right lower quadrant. No free air. Diverticulosis without evidence of diverticulitis. ECG Additional Comments: EKG per my read reveals atrial fibrillation at 83 bpm, QRS = 150 QTC = 491. Right bundle branch block. No significant change when compared to prior PG Care Time/CCT Total # of Minutes Spent Total Time Spent with Patient: Total time spent is greater than 50% in coordination of care (as documented) at patient's floor/unit and/or counseling patient: Coding Level of Care Code 42565 INT INP/OBS CARE 2/55MIN Diagnoses SBO (small bowel obstruction) K56.609 Afib I48.91 HTN (hypertension) I10
--- NOTE | 2022-04-27 08:12 | CT Scan Report ---
ABDOMEN AND PELVIS CT WITH IV CONTRAST CT DOSE: 1758.29 mGy.cm HISTORY: Acute generalized abdominal pain abd pain TECHNIQUE: Multiaxial CT images of the abdomen and pelvis were performed following the IV administrat ion of 86 cc of Optiray, A dose lowering technique was utilized adhering to the principles of ALARA. COMPARISON STUDY: 07/30/2016 FINDINGS: Cardiomegaly. Mild bibasilar bronchial wall thickening. No pneumatosis or pneumoperitoneum. The spleen, moderately atrophic pancreas and adrenal glands are unremarkable. Cholelithiasis. Hepati c steatosis. 1.4 cm ill-defined area of increased attenuation within the inferior right hepatic lobe on image 108 series 3 may represent enhancing lesion versus vascular shunting. Mild hepatomegaly. Punctate nonobstructing calculus of the superior pole right kidney. There is mild nonspecific bilater al perinephric stranding. There are a few left-sided renal sinus cysts. No ureteral calculi or hydron ephrosis identified. Mild prostamegaly. Urinary bladder wall thickening with partial distention. Find ings suggestive of bilateral inguinal hernia repair. Postoperative changes of the diaphragmatic hiatu s with unchanged appearance of the hiatal hernia. Numerous air and fluid-filled dilated loops of smal l bowel within the central abdomen measure up to 3.4 cm. Fluid-filled terminal ileum with more decomp ressed loops present within the abdominal right lower quadrant. No definite discrete transition point identified. Colonic diverticulosis without acute diverticulitis. Unremarkable soft tissues. No acute fracture. IMPRESSION: 1. Dilated air and fluid-filled loops of small bowel with decompressed loops within the abdominal rig ht lower quadrant. Findings are suggestive of at least a partial small bowel obstruction. 2. Cholelithiasis. 3. Punctate right renal calculus. 4. Hepatic steatosis. 5. Colonic diverticulosis. 6. Additional findings as above. ACT 112: Negative or not required by law. The above report was generated using voice recognition software. It may contain grammatical, syntax o r spelling errors. Electronically signed by: Bg Maria M.D. 04/27/2022 8:11 AM
[2022-04-27] MEDS ORDERED: LACTATED RINGER'S 1,000 ML IV SCH (08:37)
[2022-04-27] MEDS ORDERED: MoRPHine SULFATE 2 MG/ML CARP IV PRN (08:37)
[2022-04-27] MEDS ORDERED: ONDANSETRON INJ 2 MG/ML 2 ML VIAL IV PRN (08:37)
[2022-04-27] MEDS ORDERED: MoRPHine SULFATE 4 MG/ML 1 ML CARP\\VIAL IV PRN (08:37)
[2022-04-27] MEDS ORDERED: ACETAMINOPHEN 325 MG TAB PO PRN (08:37)
[2022-04-27] MEDS ORDERED: APIXABAN 5 MG TABLET PO SCH (09:00)
[2022-04-27] MEDS ORDERED: LOSARTAN POTASSIUM 50 MG TAB PO SCH (09:00)
[2022-04-27] MEDS ORDERED: amLODIPine BESYLATE 5 MG TAB PO SCH (09:00)
[2022-04-27] MEDS ORDERED: LABETALOL HCL IV 5 MG/ML 20ML IV PRN (09:33)
[2022-04-27] MEDS ORDERED: hydrALAZINE HCL 20 MG/ML VIAL IV PRN (09:55)
--- NOTE | 2022-04-27 10:03 | Electrocardiogram Report ---
Test Reason : Blood Pressure : / mmHG Vent. Rate : 083 BPM Atrial Rate : 068 BPM P-R Int : 000 ms QRS Dur : 150 ms QT Int : 418 ms P-R-T Axes : 000 073 -03 degrees QTc Int : 491 ms Atrial fibrillation with premature ventricular or aberrantly conducted complexes Right bundle branch block Abnormal ECG When compared with ECG of 30-JUL-2016 17:55, No significant change was found Confirmed by Jason Hahn ([id number]) on 04/27/2022 10:03:31 AM Referred By: REFERRED SELF Confirmed By:Jason Hahn
--- NOTE | 2022-04-27 18:10 | Discharge Summary ---
Date of Service April 27, 2022 Admission HPI Per Admitting Provider Mick Soto is a 66yo male with history of AF on Apixaban anticoagulation, COPD, HTN, HLP and Ventral Hernia presenting with acute abdominal pain. Patient was eating dinner when he developed acute diffuse abdominal cramping. He has been belching a lot and has some increased abdominal distention. He denies nausea. Pain has resolved. No history of prior bowel obstructions. Patient with multiple hernias with r epair. IN the ER he is afebrile, HD stable Pain is well controlled at present Principal Diagnosis Small bowel obstruction Discharge Exam Constitutional WD/WN, vitals as above Eyes + anicteric sclerae Neck trachea midline, no thyromegaly Respiratory normal respiratory effort, lungs clear to auscultation Cardiovascular RRR, no murmur, no edema Gastrointestinal (Abdomen) normal bowel sounds, soft, nontender, no hepatosplenomegaly Musculoskeletal Head/Neck/Chest: normocephalic and head atraumatic Skin no rashes, warm and dry Neurologic moves all extremities Psychiatric A+Ox3, euthymic affect Lymphatic no cervical lymphadenopathy Discharge Data Allergies Allergy/AdvReac Type Severity Reaction Status Date / Time No Known Drug Allergies Allergy Verified 03/09/22 13:48 Consultations 04/27/22 04:06 ED Decision to Admit Stat Ordered Studies 04/27/22 00:14 CT abd pelvis IV con only Urgent Hospital Course (1) SBO (small bowel obstruction): 66-year-old male with history of atrial fibrillation on apixaban anticoagulation, COPD, hypertension, hyperlipidemia, multiple ventral hernias status post repair with mesh in place presenting with acute onset of diffuse abdominal pain that occurred this evening after dinner. Patient with also abdominal distention and increased belching. Admitted to medical Conservative therapyn.p.o., gentle IV fluids and electrolyte repletion, antiemetics and pain control Progressively titrated over the past 12 hours from clears to solid food and tolerated it without difficulty or pain. [place] safe to discharge home. (2) Afib: Rate controlled atrial fibrillation on apixaban anticoagulation Continue apixaban 5 mg p.o. twice daily Continue to monitor (3) HTN (hypertension): Blood pressure mildly elevated presently 153/100 Ensure proper pain control Continue losartan 100 mg p.o. every morning Continue amlodipine 5 mg p.o. every morning Continue to monitor blood pressure FENlow fiber Ppx:continue patient's apixaban for atrial fibrillation as above Codefull per discussion with patient Dispositiondischarge home Total Time Total Time Spent Total Time Spent (In Minutes): <30 Discharge Plan Discharge Items Patient Disposition: Home - Self-Care Reason For Visit: BOWEL OBSTRUCTION Discharge Diagnosis: Small Bowel Obstruction Activity: Per Instructions section Non-emergency contact: Primary Care Provider Call non-emergency contact if: you have any medication questions Follow-up/Referrals: Hortencia Moser MD [Primary Care Provider] - 05/07/22 11:30 am Diet: Low Fiber Addtl Attending Provider Instructions: You were seen in the hospital for evaluation of abdominal pain. While you are in the ED it was found that you had a small bowel obstruction likely due to the multiple hernia repair surgeries that you have had in the past. For this we will treat you conservatively with nothing by mouth and IV fluids and gradually increase the amount of food that you could tolerate without feeling pain. At the time of your discharge, you were able to tolerate solid foods without any abdominal pain. For this reason we feel it is safe for you to be discharged. Now you have had a small bowel obstruction you are more likely to have ones in the future. Please follow-up with your primary care provider within 1 week of discharge for further instructions regarding your care. Is been a pleasure to be part of your care and we wish you the best in both your health and your recovery. Pending Studies at Discharge: No Stand-Alone Forms: [facility], Smoking Cessation Medications and DC Order Prescriptions: Continued Eliquis 5 mg tablet 5 mg PO BID Qty: 180 3RF Rx Instructions: will be held after pm dose losartan 100 mg tablet 100 mg PO QAM Qty: 90 3RF cholecalciferol (vitamin D3) 1,000 unit capsule 1,000 units PO QAM ferrous sulfate 325 mg (65 mg iron) tablet 325 mg PO .COMPLEX Rx Instructions: 325 mg PO three times a week; multivitamin [Daily Multi-Vitamin] tablet 1 tab PO QAM amoxicillin 500 mg Tablet 500 mg PO TID Rx Instructions: for 7 days for oral infection amlodipine 5 mg tablet 5 mg PO QAM Discharge Orders: Discharge Order (Routine); Ordered 04/27/22 Ordered By: Lionel Bolanos/Other Patient Handouts: Small Bowel Obstruction Admission Data Admit Date/Time: 04/27/22 05:35 Attending Provider: Filemon Mccoy Admit Provider: Leanna Brizuela Primary Care Provider: Hortencia Moser Other Providers: Leanna Brizuela Other Interventions: Discharge Summary Assessment (RN) Last Done: 04/27/22 18:04 Supervising Physician Co-Signing Physician Notes I personally examined the patient and verified all blancas points of history and exam, discussed case, and agree with decision making with Dr Meraz feeling better no pain no nausea (+) BM later tolerated regular diet and felt up to going home vitlas noted nad heent nc at mmm abd soft nd nt no hernia/sac/bulge/mass palpable. CT noted partial SBO - almost certainly adhesional, fortunately nothing c/w hernia incarceration. safe/stable for home otherwise as above
--- NOTE | 2022-04-27 19:07 | Billing Data ---
Date of Service April 27, 2022 Coding Level of Care Code HOSP INP/OBS DISCH 30 MIN/LESS
== END 2022-04-27 18:30 | disposition home or self-care (01) ==
LOC: ED 00:01 → SUATTDRO 05:35 → INTOOBSV 05:35 → 3W 05:35